=== PATIENT | female | born 1940 | race African-American/Black ===

== ENCOUNTER 2017-01-25 15:36 | Inpatient (IN) ==
[2017-01-25] MEDS ORDERED: ACETAMINOPHEN 325 MG TABLET PO PRN (16:44)
[2017-01-25] MEDS ORDERED: MAGNESIUM HYDROXIDE SUSP 30 ML UDCUP PO PRN (16:44)
[2017-01-25] MEDS ORDERED: chlorproMAZINE 25 MG TABLET PO PRN (16:44)
[2017-01-25] MEDS ORDERED: diphenhydrAMINE CAP 25 MG CAPSULE PO PRN (16:44)
[2017-01-25] MEDS ORDERED: guaiFENesin 200 MG/10 ML UDCUP PO PRN (16:44)
[2017-01-25] MEDS ORDERED: TEMAZEPAM 7.5 MG CAPSULE PO PRN (16:44)
[2017-01-25] MEDS ORDERED: BENZTROPINE 2 MG/2 ML AMP IV PRN (16:44)
[2017-01-25] MEDS ORDERED: MYLANTA/LIDO VISC 2:1 300 ML BOTTLE SWISH/SPIT PRN (16:44)
[2017-01-25] MEDS ORDERED: ALPRAZolam 0.25 MG TABLET PO PRN (16:44)
[2017-01-25] MEDS ORDERED: LOPERAMIDE 2 MG CAPSULE PO PRN ×2 (16:44)
[2017-01-25] MEDS ORDERED: ONDANSETRON 4 MG/2 ML VIAL IV PRN (16:44)
[2017-01-25] MEDS ORDERED: PROMETHAZINE INJ 25 MG in SODIUM CHLORIDE 0.9% 50 ML IV PRN (16:44)
[2017-01-25] MEDS ORDERED: ALUMINUM/MAGNES/SIMETH MAX STR 30 ML UDCUP PO PRN (16:44)
[2017-01-25] MEDS ORDERED: LACTULOSE 20 GM/30 ML UDCUP PO PRN (16:44)
[2017-01-25] MEDS ORDERED: traMADol 50 MG TABLET PO PRN (16:44)
[2017-01-25] MEDS ORDERED: chlorproMAZINE INJ 50 MG in SODIUM CHLORIDE 0.9% 100 ML IV PRN (16:44)
[2017-01-25] MEDS ORDERED: chlorproMAZINE INJ 25 MG in SODIUM CHLORIDE 0.9% 100 ML IV PRN (16:44)
[2017-01-25] MEDS ORDERED: MYLANTA/LIDO VISC 2:1 300 ML BOTTLE SWISH/SWAL PRN (16:44)
[2017-01-25] MEDS: STERILE WATER SUBCUT SCH (17:16)
[2017-01-25] MEDS: AZACITIDINE SUBCUT SCH (17:16)
[2017-01-25] MEDS: POTASSIUM CHLORIDE RIDER 10 MEQ in PREMIX 1 EACH IV SCH ×3 (18:43→22:57)
[2017-01-25] MEDS: SODIUM CHLORIDE 0.45% 1,000 ML IV SCH (18:43)
[2017-01-25] MEDS ORDERED: TUBERCULIN SKIN TEST 0.1 ML SYRINGE INTRADERM ONE (18:49)
[2017-01-25] MEDS ORDERED: PROCHLORPERAZINE 10 MG TABLET PO PRN (19:22)
[2017-01-25] MEDS ORDERED: ONDANSETRON 4 MG TABLET PO PRN (19:23)
[2017-01-25] MEDS: GABAPENTIN 300 MG CAPSULE PO SCH (21:41)
[2017-01-26] MEDS: POTASSIUM CHLORIDE RIDER 10 MEQ in PREMIX 1 EACH IV SCH ×7 (00:46→20:55)
[2017-01-26 05:29] LABS: Basophils # 0.1 10*3/uL (0.0-0.2); Basophils % 0.1 % (0.0-0.8); Hematocrit 25.9 VOL% (35.7-47.0); Hemoglobin 8.5 GM/DL (12.0-16.0); Immature Granulocytes % 9.7 %; Immature Granulocytes Absolute 5.19 #; Lymphocytes # 2.1 10*3/uL (1.4-4.0); Lymphocytes % 3.8 % (21.3-54.2); Mean Corpuscular HGB Conc 32.8 GM/DL (32-36); Mean Corpuscular Hemoglobin 29 PG (27-34); Mean Corpuscular Volume 88.7 FL (87-102); Monocytes # 32.7 10*3/uL (0.11-0.8); Monocytes % 60.9 % (1.7-12.7); Neutrophils # 13.6 10*3/uL (1.4-7.4); Neutrophils % 25.5 % (38.7-73.9); Red Blood Count 2.92 MC/CUMM (3.8-5.5); Red Cell Distribution Width 21.6 % (9.3-17.3)
[2017-01-26 05:33] LABS: Platelet Count 143 T/CUMM (130-400); White Blood Count 53.6 T/CUMM (4-12)
[2017-01-26 05:51] LABS: Band Neutrophils 3 % (0-10); Burr Cells Slight; Elliptocytes Few; Hypochromasia 1+; Lymphocytes 12 % (20-55); Platelet Estimate Normal; Segmented Neutrophils 26 % (50-85); Total Cells Counted 100
[2017-01-26 05:52] LABS: Microcytosis 1+
[2017-01-26 08:12] LABS: Calcium 6.6 MG/DL (8.5-10.1); Osmolality,Calculated 279.5 MOS/KG (273-304); Potassium 3.2 MMOL/L (3.5-5.1)
[2017-01-26] MEDS ORDERED: MAGNESIUM SULF RIDER 4 GM in PREMIX 1 EACH IV ONE (08:42)
--- NOTE | 2017-01-26 08:45 | Oncology History&Physical ---
Assessment and Plan (1) CMML (chronic myelomonocytic leukemia) Status: Acute Assessment and plan: Continue to follow CBC daily. Very close to transfusion. Supplementing magnesium and potassium intravenously today. Continuing with cycle 3 day 2 of days. Consult for physical therapy with consideration of swing bed placement. Acute renal failure continuing hydration Current Visit: Yes History of Present Illness Chief complaint: Weakness History of present illness: Ms. Davila is a 77 year old female With multiple myeloma and chronic myelomonocytic leukemia. The patient was seen yesterday a.m. in the ER status post fall. She had an unremarkable CT of the head and CT of the cervical spine. Her labs were notable for hypokalemia and acute renal failure. She was evaluated later that day in my office and after further discussion she was admitted to the hospital. She appears nontoxic this morning and feels much better after some basic IV fluids. Her creatinine has improved slightly from 2.2-1.9 with positive urine output. The patient was due for chemotherapy with 5 days ago which was initiated late yesterday afternoon. We have treated her M spike previously with Velcade and steroids with an excellent response. We were expecting home delivery of Revlimid for her myeloma later this week Home Medications Medication Instructions Recorded Confirmed Type amLODIPine [Norvasc] 5 mg PO DAILY 10/13/16 01/25/17 History Ondansetron HCl 8 mg PO Q6H PRN 11/24/16 01/25/17 History Prochlorperazine Tab [Compazine 10 mg PO Q6HR PRN 11/24/16 01/25/17 History Tab] traMADol TAB [Ultram] 50 mg PO BID PRN 11/24/16 01/25/17 History Omeprazole [Omeprazole] 20 mg PO DAILY 11/25/16 01/25/17 History Gabapentin Cap/Tab [Neurontin 300 mg PO TID 01/25/17 01/25/17 History Cap/Tab] Allergies Allergy/AdvReac Type Severity Reaction Status Date / Time No Known Allergies Allergy Verified 01/25/17 11:00 Medical,Surgical,& Family Hx - Medical History Cardio: History of: Hypertension (MEDICATION) Neurology: History of: Migraine No history of: Seizures HEENT: History of: Eye Problem (GLASSES) Genitourinary: History of: Kidney Stones, Recurring Urinary Tract Infections Gastrointestinal: History of: GERD Musculoskeletal: History of: Back/Neck Problems Hematology: History of: Anemia (cml), Blood Transfusion Reaction (2016) - Surgical History Cardiac Surgeries: Patient Denies: Cardiac Catheterization Thoracic Surgeries: Surgical HX of;: Lithotripsy (2016) HEENT Surgeries: Comment Only: Eye Surgery (CATARACT SUGERY TO LEFT EYE 9 YEARS AGO) Abdominal Surgeries: Surgical HX of: Cholecystectomy (7 YEARS AGO), Colonoscopy (2016), EGD (2016) - Family History Family History: Reports;: Family Cancer (SISTERS AND BROTHER) Denies;: Family Diabetes, Family Heart Disease, Family Hematology, Family Hypertension, Family Psychiatric Problems, Family Stroke - Social History Smoking Status: Never smoker Frequency of Alcohol Use: None Type of Drug Use: None - Constitutional Constitutional: Present: fatigue, malaise, weakness, weight loss. Absent: fever (s) - EENT Eye: Absent: blurry vision Ears: Absent: decreased hearing Nose, mouth and throat: Absent: dysphagia, epistaxis - Cardiovascular Cardiovascular ROS IM: Absent: chest pain - Respiratory Respiratory: Absent: cough - Gastrointestinal Gastrointestinal: Absent: abdominal pain, cramping - Neurological Neurological ROS: Absent: focal weakness, memory loss - Hematologic/Lymphatic Hematologic/Lymphatic: Absent: lymphadenopathy Exam - Constitutional Vitals: Period Temp Pulse Resp BP Sys/Rice Pulse Ox Last 24 Hr 97.8 F-98.2 F 88-98 16-20 89-126/55-75 94-99 General appearance: no acute distress, under weight - Head Head Exam: Present: normal inspection, normocephalic, atraumatic - Eye Eye Exam: Present: EOMI. Absent: conjunctival injection, periorbital swelling, scleral icterus - ENT ENT exam: Present: normal external ear exam - Neck Neck exam: Present: normal inspection. Absent: lymphadenopathy, tenderness, thyromegaly - Respiratory Respiratory exam: Present: CTAB. Absent: accessory muscle use, chest wall tenderness, wheezes - Cardiovascular Cardiovascular exam: Present: RRR - GI/Abdominal GI/Abdominal exam: Absent: ascites, distended, guarding - Extremities Exam Extremities exam: Present: normal capillary refill - Neurological Exam Neurological exam: Present: alert, oriented X3 Results - Labs CBC & BMP: 01/26/17 04:11 01/26/17 04:11
[2017-01-26] MEDS ORDERED: amLODIPine 5 MG TABLET PO SCH (09:00)
[2017-01-26] MEDS: PANTOPRAZOLE 20 MG TABLET PO SCH (09:23)
[2017-01-26] MEDS: GABAPENTIN 300 MG CAPSULE PO SCH ×3 (09:23→20:54)
[2017-01-26] MEDS ORDERED: AZACITIDINE IV SCH (09:49)
[2017-01-26] MEDS ORDERED: STERILE WATER IV SCH (09:49)
[2017-01-26 11:37] LABS: Apearance,Urine Slightly Hazy (Clear); Bacteria,Urine Occasional /HPF (Few); Bilirubin,Urine Negative (Negative); Blood, Urine Small mg/dL (Negative); Glucose,Urine (UA) Negative (Negative); Hyaline Casts,Urine 1 /LPF (0-3); Ketones,Urine Negative (Negative); Mucus,Urine Occasional /LPF (Occasional); Nitrite,Urine Negative (Negative); Protein,Urine Negative; RBC,Urine 3 /HPF (0-4); Squamous Epithelial Cell,Urine Occasional /HPF (0-10); Urine Color Yellow (Yellow); Urine Specific Gravity 1.006 (1.001-1.035); Urine Urobilinogen < 2.0 EU/DL (0.2-1.0); WBC,Urine 10 /HPF (0-6)
[2017-01-26] MEDS: SODIUM CHLORIDE 0.9% IV SCH (15:26)
[2017-01-26] MEDS: AZACITIDINE IV SCH (15:26)
[2017-01-26] MEDS: STERILE WATER SUBCUT SCH (15:35)
[2017-01-26] MEDS: AZACITIDINE SUBCUT SCH (15:35)
[2017-01-26] MEDS: SODIUM CHLORIDE 0.45% 1,000 ML IV SCH (20:56)
[2017-01-27 05:31] LABS: Basophils % 0.1 % (0.0-0.8); Eosinophils % 0.1 % (0.00-10.9); Hematocrit 26.1 VOL% (35.7-47.0); Hemoglobin 8.6 GM/DL (12.0-16.0); Immature Granulocytes % 6.3 %; Lymphocytes # 2.5 10*3/uL (1.4-4.0); Mean Corpuscular Hemoglobin 30 PG (27-34); Mean Corpuscular Volume 89.7 FL (87-102); Monocytes # 28.5 10*3/uL (0.11-0.8); Monocytes % 68.6 % (1.7-12.7); Neutrophils # 7.9 10*3/uL (1.4-7.4); Neutrophils % 18.9 % (38.7-73.9); Platelet Count 159 T/CUMM (130-400); Red Blood Count 2.91 MC/CUMM (3.8-5.5); Red Cell Distribution Width 21.3 % (9.3-17.3)
[2017-01-27 05:34] LABS: White Blood Count 41.6 T/CUMM (4-12)
[2017-01-27 05:52] LABS: Band Neutrophils 1 % (0-10); Lymphocytes 17 % (20-55); Segmented Neutrophils 29 % (50-85); Total Cells Counted 100
[2017-01-27 05:54] LABS: Acanthocytes Few; Hypochromasia 1+
[2017-01-27 05:55] LABS: Microcytosis 1+; Platelet Estimate Adequate; Schistocytes Slight
[2017-01-27 06:23] LABS: Calcium 6.2 MG/DL (8.5-10.1); Osmolality,Calculated 272.1 MOS/KG (273-304); Potassium 3.4 MMOL/L (3.5-5.1)
[2017-01-27] MEDS: PANTOPRAZOLE 20 MG TABLET PO SCH (08:53)
[2017-01-27] MEDS: GABAPENTIN 300 MG CAPSULE PO SCH ×3 (08:53→20:37)
--- NOTE | 2017-01-27 08:53 | Oncology Progress Note ---
Assessment and Plan (1) CMML (chronic myelomonocytic leukemia) Status: Acute Assessment and plan: Continue to follow CBC daily. Very close to transfusion. Supplementing magnesium and potassium intravenously today. Continuing with cycle 3 day 2 of days. Consult for physical therapy with consideration of swing bed placement. Acute renal failure continuing hydration Current Visit: Yes Oncology Subjective PN Interval history: Patient remained stable overnight. She does have some hypotension and we are continuing IV fluids. Amlodipine will be discontinued. I think most of the blood pressure is simply related to decrease body mass. Creatinine is improving. Her white blood count is down and we will continue with day 3 cycle 3 by Nasir. We are working on swing bed acceptance. Physical therapy will see her while hospitalized. Her abdomen is soft and nontender and she appears in no acute distress Exam - Constitutional Vitals: Period Temp Pulse Resp BP Sys/Rice Pulse Ox Last 24 Hr 97.6 F-99.4 F 84-95 16-20 87-110/52-65 89-98 Results - Labs CBC & BMP: 01/27/17 05:16 01/27/17 05:16
[2017-01-27] MEDS: POTASSIUM CHLORIDE RIDER 10 MEQ in PREMIX 1 EACH IV SCH ×5 (10:30→18:00)
[2017-01-27] MEDS: POTASSIUM CHLORIDE 8 MEQ CAPSULE PO SCH (10:30)
[2017-01-27] MEDS: SODIUM CHLORIDE 0.9% IV SCH (14:46)
[2017-01-27] MEDS: AZACITIDINE IV SCH (14:46)
[2017-01-27] MEDS: SODIUM CHLORIDE 0.45% 1,000 ML IV SCH (14:51)
[2017-01-27] MEDS ORDERED: LEVOFLOXACIN INJ 500 MG in PREMIX 1 EACH IV SCH (20:30)
[2017-01-28] MEDS: SODIUM CHLORIDE 0.45% 1,000 ML IV SCH (00:30)
[2017-01-28 05:44] LABS: Hematocrit 25.4 VOL% (35.7-47.0); Hemoglobin 8.4 GM/DL (12.0-16.0); Immature Granulocytes % 3.5 %; Immature Granulocytes Absolute 1.54 #; Lymphocytes # 3.3 10*3/uL (1.4-4.0); Lymphocytes % 7.5 % (21.3-54.2); Mean Corpuscular HGB Conc 33.1 GM/DL (32-36); Mean Corpuscular Hemoglobin 30 PG (27-34); Mean Corpuscular Volume 89.1 FL (87-102); Monocytes # 32.3 10*3/uL (0.11-0.8); Monocytes % 72.7 % (1.7-12.7); Neutrophils # 7.2 10*3/uL (1.4-7.4); Neutrophils % 16.3 % (38.7-73.9); Red Blood Count 2.85 MC/CUMM (3.8-5.5); Red Cell Distribution Width 21.4 % (9.3-17.3)
[2017-01-28 05:52] LABS: Platelet Count 109 T/CUMM (130-400); White Blood Count 44.4 T/CUMM (4-12)
[2017-01-28 06:16] LABS: Calcium 6.5 MG/DL (8.5-10.1); Osmolality,Calculated 268.2 MOS/KG (273-304); Potassium 4.3 MMOL/L (3.5-5.1)
[2017-01-28 06:18] LABS: Burr Cells Slight; Elliptocytes Few; Hypochromasia 1+; Lymphocytes 6 % (20-55); Platelet Estimate Decreased; Segmented Neutrophils 31 % (50-85); Total Cells Counted 100
[2017-01-28 06:19] LABS: Microcytosis 1+
--- NOTE | 2017-01-28 08:58 | Oncology Progress Note ---
Assessment and Plan (1) CMML (chronic myelomonocytic leukemia) Status: Acute Assessment and plan: Continue to follow CBC daily. Very close to transfusion. Supplementing magnesium and potassium intravenously today. Continuing with cycle 3 day 2 of days. Consult for physical therapy with consideration of swing bed placement. Acute renal failure continuing hydration Current Visit: Yes Oncology Subjective PN Interval history: jocelyne vee unavail febrile overnight but in no distress wbc stable elevation to complete chemo tomorrow awaiting final sens of urine cx she is anemic which is contributing to her fatigue planning swing bed in the am Exam - Constitutional Vitals: Period Temp Pulse Resp BP Sys/Rice Pulse Ox Last 24 Hr 98.2 F-101.3 F 90-102 18-20 81-104/46-64 94-95 Results - Labs CBC & BMP: 01/28/17 05:29 01/28/17 05:29
[2017-01-28] MEDS: GABAPENTIN 300 MG CAPSULE PO SCH ×3 (09:14→20:42)
[2017-01-28] MEDS: POTASSIUM CHLORIDE 8 MEQ CAPSULE PO SCH (09:14)
[2017-01-28] MEDS: PANTOPRAZOLE 20 MG TABLET PO SCH (09:14)
--- NOTE | 2017-01-28 09:26 | XRay Report ---
Referring Physician: Joe Plata Exam: XR chest 1V portable Date: January 28, 2017 at 8:52 AM Reason: Fever Comparison: Left rib x-rays with chest view December 06, 2016 Findings: The cardiac silhouette is normal in size. There are mild bibasilar opacities. This likely represents atelectasis, but there could be superimposed pneumonia. No pneumothorax is identified, but there is likely minimal right pleural fluid. No acute osseous process is seen. Impression: Mild bibasilar opacities are present. This likely represents atelectasis, but there could be superimposed pneumonia, especially at the right lung base. There is also minimal right pleural fluid. PROCEDURE INTERPRETED AT [facility] DEPARTMENT OF RADIOLOGY Final Report Signed by: Dr. Hector Morrison
[2017-01-28] MEDS ORDERED: MAGNESIUM SULF RIDER 4 GM in PREMIX 1 EACH IV ONE (10:00)
[2017-01-28 11:41] LABS: Apearance,Urine CLEAR (Clear); Bilirubin,Urine Negative (Negative); Blood, Urine Small mg/dL (Negative); Glucose,Urine (UA) Negative (Negative); Ketones,Urine Negative (Negative); Nitrite,Urine Negative (Negative); Protein,Urine Negative; RBC,Urine 1 /HPF (0-4); Squamous Epithelial Cell,Urine Occasional /HPF (0-10); Urine Color Straw (Yellow); Urine Specific Gravity 1.004 (1.001-1.035); Urine Urobilinogen < 2.0 EU/DL (0.2-1.0); WBC,Urine 2 /HPF (0-6)
[2017-01-28] MEDS: AZACITIDINE IV SCH (14:14)
[2017-01-28] MEDS: SODIUM CHLORIDE 0.9% IV SCH (14:14)
[2017-01-28] MEDS ORDERED: LEVOFLOXACIN INJ 250 MG in PREMIX 1 EACH IV SCH (20:00)
[2017-01-29 07:44] VITALS: BP 91/52
[2017-01-29] MEDS: POTASSIUM CHLORIDE 8 MEQ CAPSULE PO SCH (08:14)
[2017-01-29] MEDS: PANTOPRAZOLE 20 MG TABLET PO SCH (08:14)
[2017-01-29] MEDS: GABAPENTIN 300 MG CAPSULE PO SCH (08:14)
[2017-01-29] MEDS: SODIUM CHLORIDE 0.45% 1,000 ML IV SCH (09:21)
[2017-01-29] MEDS: SODIUM CHLORIDE 0.9% IV SCH (09:25)
[2017-01-29] MEDS: AZACITIDINE IV SCH (09:25)
--- NOTE | 2017-01-29 12:13 | Discharge Summary ---
Hospital Course - Hospital Course Hospital Course: Patient with both multiple myeloma and chronic myelomonocytic leukemia. She was admitted with acute renal failure hypotension and failure to thrive. During this admission we have discontinued her amlodipine and provided her with IV fluids. Her creatinine did improve. We have repleted her electrolytes. We did administer by Nasir cycle 3 days 1 through 5. She also has evidence of an E. coli urinary tract infection with oral antibiotics prescribed at discharge. She will transfer to swing bed today for continued rehabilitation with weekly labs ordered and 3 week office visit to be arranged Diagnosis - Discharge Diagnosis (1) CMML (chronic myelomonocytic leukemia) Status: Acute Specialty Discharge - Follow Up or Referrals Follow up with: Joe Plata MD [Primary Care Provider] - 02/22/17 11:00 am Discharge Plan - Discharge Medications No Action traMADol TAB [Ultram] 50 mg PO BID PRN PRN Reason: Pain Ondansetron HCl 8 mg PO Q6H PRN PRN Reason: Nausea Gabapentin Cap/Tab [Neurontin Cap/Tab] 300 mg PO TID Prochlorperazine Tab [Compazine Tab] 10 mg PO Q6HR PRN PRN Reason: Nausea Omeprazole [Omeprazole] 20 mg PO DAILY Levofloxacin Tab [Levaquin Tab] 250 mg PO DAILY Potassium Chloride Cap/Tab [Micro K] 16 meq PO DAILY - Follow Up or Referral Follow Up: Joe Plata MD [Primary Care Provider] - 02/22/17 11:00 am - Forms/Instructions Instructions: Luc Antibiotic Awarness, Urinary Tract Infection in Women ( [place]) Exam - Constitutional Vitals: Period Temp Pulse Resp BP Sys/Rice Pulse Ox Last 24 Hr 98.2 F-99.6 F 92-110 16-20 85-107/52-59 94-98 Discharge Results Procedures and tests throughout hospitalization: Pending Orders 01/27/17 20:27 Blood Culture Stat Labs on day of discharge: Preliminary micro results at discharge 01/27/17 20:27 Blood Culture - Preliminary Blood No growth at 1 day 01/27/17 20:38 Blood Culture - Preliminary Blood No growth at 1 day DS: Provider Date of admission: 01/25/17 16:44 Primary care physician: Joe Plata MD Attending physician on admission: Joe Plaat MD Consults: 01/25/17 16:49 Consult to Physical Therapy [CONS] Routine Reason for Physical Therapy: Weakness Evaluate and Treat 01/25/17 18:03 Consult to Dietitian [CONS] Routine Reason for Dietitian: Other Consult Comment: significant weight loss 01/25/17 18:49 Consult to Case Mgmt/Social Srvs [CONS] Routine Reason for Case Mgmt/Social Srvs: Discharge Planning Swingbed/SNF/[facility] Discharging clinician: Joe Plata MD
== END 2017-01-29 11:15 | disposition swing bed (61) | DRG 683 ==
LOC: EDBD → N.4E 16:26
PROVIDERS: ADMIT Specialist; ATTEND Specialist

== ENCOUNTER 2017-06-10 18:39 | Inpatient (IN) ==
[2017-06-10] MEDS ORDERED: SODIUM CHLORIDE 0.9% 1,000 ML IV STA (19:42)
[2017-06-10 20:15] LABS: Basophils # 0.1 10*3/uL (0.0-0.2); Basophils % 0.5 % (0.0-0.8); Hematocrit 33.6 VOL% (35.7-47.0); Hemoglobin 11.2 GM/DL (12.0-16.0); Immature Granulocytes % 7.9 %; Lymphocytes # 2.2 10*3/uL (1.4-4.0); Lymphocytes % 17.1 % (21.3-54.2); Mean Corpuscular HGB Conc 33.3 GM/DL (32-36); Mean Corpuscular Hemoglobin 32 PG (27-34); Mean Corpuscular Volume 96.8 FL (87-102); Mean Platelet Volume 11.8 FL (9.6-12.0); Monocytes # 4.1 10*3/uL (0.11-0.8); Monocytes % 32.7 % (1.7-12.7); Neutrophils # 5.3 10*3/uL (1.4-7.4); Neutrophils % 41.8 % (38.7-73.9); Platelet Count 168 T/CUMM (130-400); Red Blood Count 3.47 MC/CUMM (3.8-5.5); Red Cell Distribution Width 16.6 % (9.3-17.3); White Blood Count 12.6 T/CUMM (4-12)
[2017-06-10 20:41] LABS: Albumin 4.1 G/DL (3.4-5.0); Bilirubin,Total 0.6 MG/DL (0.2-1.0); Calcium 9.1 MG/DL (8.5-10.1); Magnesium 1.9 MG/DL (1.8-2.4); Osmolality,Calculated 282.5 MOS/KG (273-304); Potassium 3.7 MMOL/L (3.5-5.1); Total Protein 8.7 G/DL (6.4-8.3)
[2017-06-10 20:45] LABS: Apearance,Urine Slightly Hazy (Clear); Bacteria,Urine Few /HPF (Few); Bilirubin,Urine Negative (Negative); Blood, Urine Moderate mg/dL (Negative); Glucose,Urine (UA) Negative (Negative); Hyaline Casts,Urine 1 /LPF (0-3); Ketones,Urine Negative (Negative); Nitrite,Urine Negative (Negative); Protein,Urine 30 MG/DL; RBC,Urine 4 /HPF (0-4); Squamous Epithelial Cell,Urine Occasional /HPF (0-10); Transitional Epi Cells,Urine Occasional /HPF (<1); Urine Color Yellow (Yellow); Urine Specific Gravity 1.011 (1.001-1.035); Urine Urobilinogen < 2.0 EU/DL (0.2-1.0); WBC,Urine 21 /HPF (0-6)
[2017-06-10 21:45] LABS: Band Neutrophils 1 % (0-10); Lymphocytes 23 % (20-55); Platelet Estimate Normal; Poikilocytosis Slight; Segmented Neutrophils 41 % (50-85); Tear Drop Cells Few; Total Cells Counted 100
[2017-06-10 21:46] LABS: Burr Cells Few
[2017-06-10] MEDS ORDERED: PROMETHAZINE INJ 25 MG in SODIUM CHLORIDE 0.9% 50 ML IV PRN (22:59)
[2017-06-10] MEDS ORDERED: ALUMINUM/MAGNES/SIMETH MAX STR 30 ML UDCUP PO PRN (22:59)
[2017-06-10] MEDS ORDERED: MYLANTA/LIDO VISC 2:1 300 ML BOTTLE SWISH/SPIT PRN (22:59)
[2017-06-10] MEDS ORDERED: ACETAMINOPHEN 325 MG TABLET PO PRN (22:59)
[2017-06-10] MEDS ORDERED: MYLANTA/LIDO VISC 2:1 300 ML BOTTLE SWISH/SWAL PRN (22:59)
[2017-06-10] MEDS ORDERED: BENZTROPINE 2 MG/2 ML AMP IV PRN (22:59)
[2017-06-10] MEDS ORDERED: diphenhydrAMINE CAP 25 MG CAPSULE PO PRN (22:59)
[2017-06-10] MEDS ORDERED: guaiFENesin 200 MG/10 ML UDCUP PO PRN (22:59)
[2017-06-10] MEDS ORDERED: ALPRAZolam 0.25 MG TABLET PO PRN (22:59)
[2017-06-10] MEDS ORDERED: LOPERAMIDE 2 MG CAPSULE PO PRN ×2 (22:59)
[2017-06-10] MEDS ORDERED: chlorproMAZINE 25 MG TABLET PO PRN (22:59)
[2017-06-10] MEDS ORDERED: LACTULOSE 20 GM/30 ML UDCUP PO PRN (22:59)
[2017-06-10] MEDS ORDERED: MAGNESIUM HYDROXIDE SUSP 30 ML UDCUP PO PRN (22:59)
[2017-06-10] MEDS ORDERED: traMADol 50 MG TABLET PO PRN (22:59)
[2017-06-10] MEDS ORDERED: chlorproMAZINE INJ 25 MG in SODIUM CHLORIDE 0.9% 100 ML IV PRN (22:59)
[2017-06-10] MEDS ORDERED: chlorproMAZINE INJ 50 MG in SODIUM CHLORIDE 0.9% 100 ML IV PRN (22:59)
[2017-06-10] MEDS: SODIUM CHLORIDE 0.9% 1,000 ML IV SCH (23:41)
[2017-06-11] MEDS: ONDANSETRON 4 MG/2 ML VIAL IV PRN (07:29)
[2017-06-11] MEDS: SODIUM CHLORIDE 0.9% 1,000 ML IV SCH (09:23)
[2017-06-11 09:25] LABS: Basophils % 0.3 % (0.0-0.8); Eosinophils % 0.1 % (0.00-10.9); Hemoglobin 9.5 GM/DL (12.0-16.0); Immature Granulocytes % 7.7 %; Immature Granulocytes Absolute 0.87 #; Lymphocytes # 1.8 10*3/uL (1.4-4.0); Lymphocytes % 15.7 % (21.3-54.2); Mean Corpuscular HGB Conc 32.8 GM/DL (32-36); Mean Corpuscular Hemoglobin 32 PG (27-34); Mean Corpuscular Volume 98.6 FL (87-102); Mean Platelet Volume 12.7 FL (9.6-12.0); Monocytes # 3.7 10*3/uL (0.11-0.8); Monocytes % 32.4 % (1.7-12.7); Neutrophils % 43.8 % (38.7-73.9); Platelet Count 146 T/CUMM (130-400); Red Blood Count 2.94 MC/CUMM (3.8-5.5); Red Cell Distribution Width 16.6 % (9.3-17.3); White Blood Count 11.3 T/CUMM (4-12)
[2017-06-11 10:03] LABS: Albumin 3.4 G/DL (3.4-5.0); Bilirubin,Total 0.5 MG/DL (0.2-1.0); Calcium 8.1 MG/DL (8.5-10.1); Magnesium 1.6 MG/DL (1.8-2.4); Osmolality,Calculated 282.1 MOS/KG (273-304); Potassium 3.3 MMOL/L (3.5-5.1); Total Protein 7.3 G/DL (6.4-8.3)
[2017-06-11 10:51] LABS: Hypochromasia 1+; Lymphocytes 22 % (20-55); Myelocytes 1 %; Platelet Estimate Adequate; Segmented Neutrophils 47 % (50-85); Total Cells Counted 100
[2017-06-11] MEDS ORDERED: ONDANSETRON 4 MG TABLET PO PRN (10:58)
[2017-06-11] MEDS ORDERED: PANTOPRAZOLE 40 MG TABLET PO PRN (10:58)
[2017-06-11] MEDS ORDERED: traMADol 50 MG TABLET PO PRN (10:58)
[2017-06-11] MEDS ORDERED: DEXAMETHASONE 10 MG/1 ML VIAL IV ONE (11:01)
[2017-06-11] MEDS: POTASSIUM CHLORIDE 8 MEQ CAPSULE PO SCH (11:13)
[2017-06-11] MEDS: MAGNESIUM CHLORIDE 64 MG TABLET PO SCH ×2 (11:13→20:28)
[2017-06-11] MEDS: LIDOCAINE 5% PATCH TRANSDERM SCH (11:21)
[2017-06-11] MEDS: GABAPENTIN 400 MG CAPSULE PO SCH ×3 (11:21→20:28)
[2017-06-11] MEDS: POTASSIUM CHLORIDE RIDER 10 MEQ in PREMIX 1 EACH IV SCH ×4 (11:44→15:49)
[2017-06-11] MEDS ORDERED: MAGNESIUM SULF RIDER 4 GM in PREMIX 1 EACH IV ONE (12:00)
[2017-06-11] MEDS: TEMAZEPAM 7.5 MG CAPSULE PO PRN (22:41)
[2017-06-12] MEDS: SODIUM CHLORIDE 0.9% 1,000 ML IV SCH ×4 (02:02→22:51)
[2017-06-12 06:41] LABS: Basophils % 0.2 % (0.0-0.8); Hematocrit 27.3 VOL% (35.7-47.0); Hemoglobin 9.2 GM/DL (12.0-16.0); Immature Granulocytes % 8.1 %; Immature Granulocytes Absolute 0.98 #; Lymphocytes % 7.8 % (21.3-54.2); Mean Corpuscular HGB Conc 33.7 GM/DL (32-36); Mean Corpuscular Hemoglobin 33 PG (27-34); Mean Corpuscular Volume 98.2 FL (87-102); Mean Platelet Volume 12.2 FL (9.6-12.0); Monocytes # 3.4 10*3/uL (0.11-0.8); Monocytes % 27.9 % (1.7-12.7); Neutrophils # 6.8 10*3/uL (1.4-7.4); Platelet Count 136 T/CUMM (130-400); Red Blood Count 2.78 MC/CUMM (3.8-5.5); Red Cell Distribution Width 16.4 % (9.3-17.3); White Blood Count 12.1 T/CUMM (4-12)
[2017-06-12 07:13] LABS: Calcium 7.9 MG/DL (8.5-10.1); Magnesium 2.6 MG/DL (1.8-2.4); Potassium 4.4 MMOL/L (3.5-5.1)
[2017-06-12 07:41] LABS: Hypochromasia 1+; Lymphocytes 3 % (20-55); Macrocytosis 1+; Myelocytes 2 %; Platelet Estimate Decreased; Polychromasia Slight; Segmented Neutrophils 69 % (50-85); Total Cells Counted 100
[2017-06-12] MEDS: ONDANSETRON 4 MG/2 ML VIAL IV PRN (08:24)
[2017-06-12] MEDS: MAGNESIUM CHLORIDE 64 MG TABLET PO SCH ×2 (08:27→20:25)
[2017-06-12] MEDS: POTASSIUM CHLORIDE 8 MEQ CAPSULE PO SCH (08:27)
[2017-06-12] MEDS: GABAPENTIN 400 MG CAPSULE PO SCH ×3 (08:27→20:25)
[2017-06-12] MEDS: LIDOCAINE 5% PATCH TRANSDERM SCH (08:27)
[2017-06-13 06:24] LABS: Basophils % 0.3 % (0.0-0.8); Immature Granulocytes % 6.9 %; Immature Granulocytes Absolute 0.83 #; Lymphocytes # 2.8 10*3/uL (1.4-4.0); Lymphocytes % 23.1 % (21.3-54.2); Mean Corpuscular Hemoglobin 33 PG (27-34); Mean Corpuscular Volume 101.6 FL (87-102); Mean Platelet Volume 12.5 FL (9.6-12.0); Monocytes % 33.4 % (1.7-12.7); Neutrophils # 4.4 10*3/uL (1.4-7.4); Neutrophils % 36.3 % (38.7-73.9); Platelet Count 127 T/CUMM (130-400); Red Blood Count 2.46 MC/CUMM (3.8-5.5); Red Cell Distribution Width 17.1 % (9.3-17.3)
[2017-06-13 06:59] LABS: Alanine Aminotransferase < 6 U/L (13-56); Albumin 2.7 G/DL (3.4-5.0); Alkaline Phosphatase 50 U/L (45-117); Aspartate Amino Transferase 5 U/L (0-37); Blood Urea Nitrogen 34 MG/DL (7-18); Calcium 7.2 MG/DL (8.5-10.1); Glucose 88 MG/DL (74-106); Potassium 3.8 MMOL/L (3.5-5.1); Sodium 143 MMOL/L (136-145); Total Protein 6.1 G/DL (6.4-8.3)
[2017-06-13 07:24] LABS: Magnesium 1.4 MG/DL (1.8-2.4); Potassium 3.8 MMOL/L (3.5-5.1)
[2017-06-13 07:52] LABS: Lymphocytes 24 % (20-55); Segmented Neutrophils 40 % (50-85); Total Cells Counted 100
[2017-06-13 07:53] LABS: Burr Cells Slight; Macrocytosis 1+; Platelet Estimate Decreased; Target Cells Slight
[2017-06-13] MEDS: GABAPENTIN 400 MG CAPSULE PO SCH ×3 (08:30→20:12)
[2017-06-13] MEDS: POTASSIUM CHLORIDE 8 MEQ CAPSULE PO SCH (08:30)
[2017-06-13] MEDS: MAGNESIUM CHLORIDE 64 MG TABLET PO SCH ×2 (08:30→20:11)
[2017-06-13] MEDS: ONDANSETRON 4 MG/2 ML VIAL IV PRN (08:30)
[2017-06-13] MEDS: LIDOCAINE 5% PATCH TRANSDERM SCH (08:30)
[2017-06-13] MEDS: SODIUM CHLORIDE 0.9% 1,000 ML IV SCH ×2 (08:34→11:07)
[2017-06-13] MEDS ORDERED: SODIUM CHLORIDE 0.9% 250 ML IV PRN (09:51)
[2017-06-13] MEDS: TEMAZEPAM 7.5 MG CAPSULE PO PRN (20:12)
[2017-06-14] MEDS: SODIUM CHLORIDE 0.9% 1,000 ML IV SCH (01:19)
[2017-06-14 05:34] LABS: Basophils # 0.1 10*3/uL (0.0-0.2); Basophils % 0.4 % (0.0-0.8); Hematocrit 34.9 VOL% (35.7-47.0); Immature Granulocytes % 7.2 %; Immature Granulocytes Absolute 0.92 #; Lymphocytes # 2.7 10*3/uL (1.4-4.0); Lymphocytes % 21.4 % (21.3-54.2); Mean Corpuscular Hemoglobin 31 PG (27-34); Mean Corpuscular Volume 93.3 FL (87-102); Mean Platelet Volume 12.5 FL (9.6-12.0); Monocytes # 4.4 10*3/uL (0.11-0.8); Monocytes % 34.5 % (1.7-12.7); Neutrophils # 4.7 10*3/uL (1.4-7.4); Neutrophils % 36.5 % (38.7-73.9); Platelet Count 133 T/CUMM (130-400); White Blood Count 12.8 T/CUMM (4-12)
[2017-06-14 05:45] LABS: Hemoglobin 11.5 GM/DL (12.0-16.0); Red Blood Count 3.74 MC/CUMM (3.8-5.5)
[2017-06-14 06:03] LABS: Lymphocytes 25 % (20-55); Platelet Estimate Normal; Segmented Neutrophils 44 % (50-85); Total Cells Counted 100
[2017-06-14 06:04] LABS: Giant Platelets Few; Hypochromasia 1+; Macrocytosis Slight; Ovalocytes Slight
[2017-06-14 06:05] LABS: Calcium 7.1 MG/DL (8.5-10.1); Magnesium 1.1 MG/DL (1.8-2.4); Osmolality,Calculated 284.3 MOS/KG (273-304); Potassium 3.5 MMOL/L (3.5-5.1)
[2017-06-14 06:08] LABS: Albumin 2.5 G/DL (3.4-5.0); Bilirubin,Total 0.4 MG/DL (0.2-1.0); Osmolality,Calculated 285.1 MOS/KG (273-304); Potassium 3.4 MMOL/L (3.5-5.1); Total Protein 5.9 G/DL (6.4-8.3)
[2017-06-14 08:06] LABS: Albumin (SPE) 3.7 G/DL (3.2-5.3); Albumin (SPE) Rel % 52.1 %; Alpha 1 (SPE) 0.2 G/DL (0.1-0.4); Alpha 1 (SPE) Rel % 2.6 %; Alpha 2 (SPE) 0.7 G/DL (0.4-1.0); Alpha 2 (SPE) Rel % 9.1 %; Beta (SPE) 0.7 G/DL (0.5-1.1); Beta (SPE) Rel % 10.3 %; Gamma (SPE) 1.9 G/DL (0.7-1.7); Gamma (SPE) Rel % 25.9 %; Total Protein (Chem) 7.2 G/DL (6.4-8.3)
[2017-06-14] MEDS ORDERED: MAGNESIUM SULF RIDER 4 GM in PREMIX 1 EACH IV ONE (08:21)
[2017-06-14] MEDS: POTASSIUM CHLORIDE 8 MEQ CAPSULE PO SCH (08:52)
[2017-06-14] MEDS: MAGNESIUM CHLORIDE 64 MG TABLET PO SCH (08:52)
[2017-06-14] MEDS: LIDOCAINE 5% PATCH TRANSDERM SCH (08:53)
[2017-06-14] MEDS: GABAPENTIN 400 MG CAPSULE PO SCH (08:54)
[2017-06-14 11:58] VITALS: BP 118/67
== END 2017-06-14 14:28 | disposition home or self-care (01) | DRG 683 ==
LOC: N.ED 18:39 → N.EDINP 21:14 → N.TELEN 22:03 → N.4E 06-11 11:00
PROVIDERS: ADMIT Specialist; ATTEND Specialist

== ENCOUNTER 2017-12-24 15:32 | Inpatient (IN) ==
[2017-12-24] MEDS ORDERED: SODIUM CHLORIDE 0.9% 1,000 ML IV STA (16:28)
[2017-12-24] MEDS ORDERED: ACETAMINOPHEN 500 MG TABLET PO STA (16:28)
[2017-12-24 16:56] LABS: Basophils % 0.1 % (0.0-0.8); Hematocrit 35.7 VOL% (35.7-47.0); Hemoglobin 11.4 GM/DL (12.0-16.0); Immature Granulocytes % 2.5 %; Immature Granulocytes Absolute 0.41 #; Lymphocytes # 0.8 10*3/uL (1.4-4.0); Mean Corpuscular HGB Conc 31.9 GM/DL (32-36); Mean Corpuscular Hemoglobin 32 PG (27-34); Mean Corpuscular Volume 99.2 FL (87-102); Mean Platelet Volume 11.6 FL (9.6-12.0); Monocytes # 3.5 10*3/uL (0.11-0.8); Monocytes % 20.7 % (1.7-12.7); Neutrophils % 71.7 % (38.7-73.9); White Blood Count 16.7 T/CUMM (4-12)
[2017-12-24 17:01] LABS: Platelet Count 38 T/CUMM (130-400)
[2017-12-24 17:10] LABS: INR 1.5; Partial Thromboplastin Time 35.5 SECS (0-40)
[2017-12-24 17:19] LABS: Albumin 2.4 G/DL (3.4-5.0); Bilirubin,Total 1.2 MG/DL (0.2-1.0); Calcium 8.6 MG/DL (8.5-10.1); Osmolality,Calculated 271.2 MOS/KG (273-304); Potassium 3.9 MMOL/L (3.5-5.1); Total Protein 8.9 G/DL (6.4-8.3)
[2017-12-24 17:43] LABS: Band Neutrophils 1 % (0-10); Lymphocytes 7 % (20-55); Segmented Neutrophils 83 % (50-85); Total Cells Counted 100
[2017-12-24 17:45] LABS: Anisocytosis 1+; Platelet Estimate Decreased
[2017-12-24 18:56] LABS: Apearance,Urine Slightly Hazy (Clear); Bacteria,Urine Occasional /HPF (Few); Bilirubin,Urine Negative (Negative); Blood, Urine Large mg/dL (Negative); Glucose,Urine (UA) Negative (Negative); Ketones,Urine Negative (Negative); Mucus,Urine Occasional /LPF (Occasional); Nitrite,Urine Negative (Negative); Protein,Urine 30 MG/DL; RBC,Urine 23 /HPF (0-4); Squamous Epithelial Cell,Urine Occasional /HPF (0-10); Urine Color Yellow (Yellow); Urine Specific Gravity 1.005 (1.001-1.035); Urine Urobilinogen < 2.0 EU/DL (0.2-1.0); WBC,Urine 115 /HPF (0-6)
[2017-12-24] MEDS ORDERED: chlorproMAZINE INJ 25 MG in SODIUM CHLORIDE 0.9% 100 ML IV PRN (21:50)
[2017-12-24] MEDS ORDERED: guaiFENesin 200 MG/10 ML UDCUP PO PRN (21:50)
[2017-12-24] MEDS ORDERED: LEVOFLOXACIN INJ 500 MG in PREMIX 1 EACH IV ONE (21:50)
[2017-12-24] MEDS ORDERED: SODIUM CHLORIDE 0.9% 1,000 ML IV PRN (21:50)
[2017-12-24] MEDS ORDERED: MYLANTA/LIDO VISC 2:1 300 ML BOTTLE SWISH/SWAL PRN (21:50)
[2017-12-24] MEDS ORDERED: traMADol 50 MG TABLET PO PRN (21:50)
[2017-12-24] MEDS ORDERED: MYLANTA/LIDO VISC 2:1 300 ML BOTTLE SWISH/SPIT PRN (21:50)
[2017-12-24] MEDS ORDERED: BENZTROPINE 2 MG/2 ML AMP IV PRN (21:50)
[2017-12-24] MEDS ORDERED: MAGNESIUM HYDROXIDE SUSP 30 ML UDCUP PO PRN (21:50)
[2017-12-24] MEDS ORDERED: LACTULOSE 20 GM/30 ML UDCUP PO PRN (21:50)
[2017-12-24] MEDS ORDERED: LOPERAMIDE 2 MG CAPSULE PO PRN ×2 (21:50)
[2017-12-24] MEDS ORDERED: ALPRAZolam 0.25 MG TABLET PO PRN (21:50)
[2017-12-24] MEDS ORDERED: PROMETHAZINE INJ 25 MG in SODIUM CHLORIDE 0.9% 50 ML IV PRN (21:50)
[2017-12-24] MEDS ORDERED: diphenhydrAMINE CAP 25 MG CAPSULE PO PRN (21:50)
[2017-12-24] MEDS ORDERED: ALUMINUM/MAGNES/SIMETH MAX STR 30 ML UDCUP PO PRN (21:50)
[2017-12-24] MEDS: SODIUM CHLORIDE 0.9% 1,000 ML IV SCH (22:38)
[2017-12-24 22:43] LABS: Uric Acid 5.1 MG/DL (2.6-6.0)
[2017-12-25] MEDS: ACETAMINOPHEN 325 MG TABLET PO PRN (04:25)
[2017-12-25] MEDS ORDERED: SODIUM CHLORIDE 0.9% 2,000 ML IV ONE (10:09)
[2017-12-25] MEDS ORDERED: MAGNESIUM SULF RIDER 4 GM in PREMIX 1 EACH IV ONE (10:24)
[2017-12-25 11:13] LABS: Basophils % 0.1 % (0.0-0.8); Hemoglobin 8.7 GM/DL (12.0-16.0); Immature Granulocytes % 2.7 %; Immature Granulocytes Absolute 0.73 #; Lymphocytes # 0.6 10*3/uL (1.4-4.0); Lymphocytes % 2.1 % (21.3-54.2); Mean Corpuscular HGB Conc 32.2 GM/DL (32-36); Mean Corpuscular Hemoglobin 32 PG (27-34); Mean Corpuscular Volume 99.3 FL (87-102); Mean Platelet Volume 12.8 FL (9.6-12.0); Monocytes # 3.4 10*3/uL (0.11-0.8); Monocytes % 12.4 % (1.7-12.7); Neutrophils # 22.7 10*3/uL (1.4-7.4); Neutrophils % 82.7 % (38.7-73.9); Platelet Count 69 T/CUMM (130-400); Red Blood Count 2.72 MC/CUMM (3.8-5.5); Red Cell Distribution Width 17.2 % (9.3-17.3); White Blood Count 27.5 T/CUMM (4-12)
[2017-12-25 11:38] LABS: Calcium 6.8 MG/DL (8.5-10.1); Osmolality,Calculated 275.8 MOS/KG (273-304); Potassium 3.4 MMOL/L (3.5-5.1)
[2017-12-25] MEDS: ONDANSETRON 4 MG/2 ML VIAL IV PRN ×2 (12:40→21:50)
[2017-12-25 12:43] LABS: Band Neutrophils 3 % (0-10); Hypersegmented Neutrophil 1+; Hypochromasia 1+; Lymphocytes 1 % (20-55); Platelet Estimate Decreased; Segmented Neutrophils 85 % (50-85); Total Cells Counted 100
[2017-12-25] MEDS ORDERED: FILGRASTIM-SNDZ 480 MCG/0.8 ML SYRINGE SUBCUT SCH (17:39)
[2017-12-25] MEDS: SODIUM CHLORIDE 0.9% 1,000 ML IV SCH (21:45)
[2017-12-25] MEDS ORDERED: LEVOFLOXACIN INJ 250 MG in PREMIX 1 EACH IV SCH (22:00)
[2017-12-26 06:57] LABS: Basophils % 0.1 % (0.0-0.8); Hematocrit 26.9 VOL% (35.7-47.0); Hemoglobin 9.1 GM/DL (12.0-16.0); Immature Granulocytes % 2.8 %; Immature Granulocytes Absolute 0.66 #; Lymphocytes # 0.6 10*3/uL (1.4-4.0); Lymphocytes % 2.4 % (21.3-54.2); Mean Corpuscular HGB Conc 33.8 GM/DL (32-36); Mean Corpuscular Hemoglobin 32 PG (27-34); Mean Corpuscular Volume 95.4 FL (87-102); Mean Platelet Volume 12.9 FL (9.6-12.0); Monocytes # 2.2 10*3/uL (0.11-0.8); Monocytes % 9.2 % (1.7-12.7); Neutrophils # 20.3 10*3/uL (1.4-7.4); Neutrophils % 85.5 % (38.7-73.9); Platelet Count 51 T/CUMM (130-400); Red Blood Count 2.82 MC/CUMM (3.8-5.5); Red Cell Distribution Width 17.3 % (9.3-17.3); White Blood Count 23.7 T/CUMM (4-12)
[2017-12-26 07:19] LABS: Hypochromasia Slight; Lymphocytes 3 % (20-55); Platelet Estimate Decreased; Segmented Neutrophils 89 % (50-85); Total Cells Counted 100
[2017-12-26 07:36] LABS: Albumin 1.8 G/DL (3.4-5.0); Bilirubin,Total 0.8 MG/DL (0.2-1.0); Calcium 6.7 MG/DL (8.5-10.1); Osmolality,Calculated 274.5 MOS/KG (273-304); Potassium 2.9 MMOL/L (3.5-5.1); Total Protein 6.3 G/DL (6.4-8.3)
[2017-12-26] MEDS ORDERED: FILGRASTIM-SNDZ 480 MCG/0.8 ML SYRINGE SUBCUT SCH (09:00)
[2017-12-26] MEDS: SODIUM CHLORIDE 0.9% 1,000 ML IV SCH (09:54)
[2017-12-26] MEDS: POTASSIUM CHLORIDE 20 MEQ TABLET PO SCH (12:19)
[2017-12-26] MEDS: POTASSIUM CHLORIDE RIDER 10 MEQ in PREMIX 1 EACH IV SCH ×4 (12:19→20:07)
[2017-12-26] MEDS: RIVAROXABAN 10 MG TABLET PO SCH (12:19)
[2017-12-26] MEDS: ONDANSETRON 4 MG/2 ML VIAL IV PRN (20:08)
[2017-12-26] MEDS: MEROPENEM 1,000 MG in SYRINGE 1 EACH IV SCH (20:12)
[2017-12-27] MEDS: SODIUM CHLORIDE 0.9% 1,000 ML IV SCH (05:27)
[2017-12-27 05:32] LABS: Basophils # 0.2 10*3/uL (0.0-0.2); Basophils % 0.3 % (0.0-0.8); Hematocrit 25.8 VOL% (35.7-47.0); Hemoglobin 8.5 GM/DL (12.0-16.0); Immature Granulocytes Absolute 2.68 #; Lymphocytes # 1.1 10*3/uL (1.4-4.0); Lymphocytes % 1.6 % (21.3-54.2); Mean Corpuscular HGB Conc 32.9 GM/DL (32-36); Mean Corpuscular Hemoglobin 32 PG (27-34); Mean Corpuscular Volume 97.7 FL (87-102); Mean Platelet Volume 13.9 FL (9.6-12.0); Monocytes # 1.9 10*3/uL (0.11-0.8); Monocytes % 2.8 % (1.7-12.7); Neutrophils # 60.4 10*3/uL (1.4-7.4); Neutrophils % 91.3 % (38.7-73.9); Red Blood Count 2.64 MC/CUMM (3.8-5.5); Red Cell Distribution Width 17.4 % (9.3-17.3)
[2017-12-27 05:37] LABS: Platelet Count 38 T/CUMM (130-400); White Blood Count 66.3 T/CUMM (4-12)
[2017-12-27 05:58] LABS: Albumin 1.7 G/DL (3.4-5.0); Bilirubin,Total 1.1 MG/DL (0.2-1.0); Calcium 6.7 MG/DL (8.5-10.1); Osmolality,Calculated 272.5 MOS/KG (273-304); Potassium 3.7 MMOL/L (3.5-5.1); Total Protein 6.2 G/DL (6.4-8.3)
[2017-12-27 06:08] LABS: Lymphocytes 1 % (20-55); Platelet Estimate Decreased; Segmented Neutrophils 96 % (50-85); Total Cells Counted 100
[2017-12-27 06:09] LABS: Hypochromasia 1+; Ovalocytes Slight
[2017-12-27] MEDS: ACETAMINOPHEN 325 MG TABLET PO PRN (06:51)
[2017-12-27] MEDS: POTASSIUM CHLORIDE 20 MEQ TABLET PO SCH (09:38)
[2017-12-27] MEDS: RIVAROXABAN 10 MG TABLET PO SCH (09:38)
[2017-12-27] MEDS: MEROPENEM 1,000 MG in SYRINGE 1 EACH IV SCH ×2 (09:38→20:19)
[2017-12-27] MEDS: TEMAZEPAM 7.5 MG CAPSULE PO PRN (23:56)
[2017-12-28 05:15] LABS: Basophils # 0.1 10*3/uL (0.0-0.2); Basophils % 0.2 % (0.0-0.8); Hematocrit 26.3 VOL% (35.7-47.0); Hemoglobin 8.5 GM/DL (12.0-16.0); Immature Granulocytes % 1.2 %; Immature Granulocytes Absolute 0.31 #; Lymphocytes % 3.9 % (21.3-54.2); Mean Corpuscular HGB Conc 32.3 GM/DL (32-36); Mean Corpuscular Hemoglobin 32 PG (27-34); Mean Corpuscular Volume 99.2 FL (87-102); Mean Platelet Volume 12.8 FL (9.6-12.0); Monocytes # 0.5 10*3/uL (0.11-0.8); Neutrophils # 23.8 10*3/uL (1.4-7.4); Neutrophils % 92.7 % (38.7-73.9); Red Blood Count 2.65 MC/CUMM (3.8-5.5); Red Cell Distribution Width 17.2 % (9.3-17.3); White Blood Count 25.7 T/CUMM (4-12)
[2017-12-28 05:31] LABS: Platelet Count 34 T/CUMM (130-400)
[2017-12-28 05:37] LABS: Lymphocytes 4 % (20-55); Platelet Estimate Decreased; Segmented Neutrophils 94 % (50-85); Total Cells Counted 100
[2017-12-28 05:38] LABS: Giant Platelets Few; Hypochromasia 1+
[2017-12-28 05:40] LABS: Albumin 1.9 G/DL (3.4-5.0); Bilirubin,Total 0.8 MG/DL (0.2-1.0); Calcium 7.2 MG/DL (8.5-10.1); Potassium 3.8 MMOL/L (3.5-5.1); Total Protein 6.5 G/DL (6.4-8.3)
[2017-12-28] MEDS: POTASSIUM CHLORIDE 20 MEQ TABLET PO SCH (09:39)
[2017-12-28] MEDS: RIVAROXABAN 10 MG TABLET PO SCH (09:39)
[2017-12-28] MEDS: MEROPENEM 1,000 MG in SYRINGE 1 EACH IV SCH ×2 (09:40→20:27)
[2017-12-28] MEDS ORDERED: MAGNESIUM SULF RIDER 4 GM in PREMIX 1 EACH IV ONE (18:00)
[2017-12-28] MEDS: TEMAZEPAM 7.5 MG CAPSULE PO PRN (20:28)
[2017-12-29] MEDS: ACETAMINOPHEN 325 MG TABLET PO PRN (02:04)
[2017-12-29 05:43] LABS: Basophils # 0.1 10*3/uL (0.0-0.2); Basophils % 0.7 % (0.0-0.8); Hematocrit 25.7 VOL% (35.7-47.0); Hemoglobin 8.2 GM/DL (12.0-16.0); Immature Granulocytes % 1.2 %; Immature Granulocytes Absolute 0.08 #; Lymphocytes # 0.8 10*3/uL (1.4-4.0); Lymphocytes % 12.1 % (21.3-54.2); Mean Corpuscular HGB Conc 31.9 GM/DL (32-36); Mean Corpuscular Hemoglobin 31 PG (27-34); Mean Corpuscular Volume 98.1 FL (87-102); Mean Platelet Volume 12.9 FL (9.6-12.0); Monocytes # 0.4 10*3/uL (0.11-0.8); Monocytes % 5.4 % (1.7-12.7); Neutrophils # 5.4 10*3/uL (1.4-7.4); Neutrophils % 80.6 % (38.7-73.9); Red Blood Count 2.62 MC/CUMM (3.8-5.5); Red Cell Distribution Width 17.2 % (9.3-17.3); White Blood Count 6.7 T/CUMM (4-12)
[2017-12-29 06:04] LABS: Platelet Count 37 T/CUMM (130-400)
[2017-12-29 06:09] LABS: Giant Platelets Few; Hypochromasia 1+; Platelet Estimate Decreased
[2017-12-29 06:18] LABS: Albumin 1.9 G/DL (3.4-5.0); Bilirubin,Total 0.7 MG/DL (0.2-1.0); Calcium 7.7 MG/DL (8.5-10.1); Osmolality,Calculated 262.4 MOS/KG (273-304); Potassium 3.7 MMOL/L (3.5-5.1); Total Protein 6.4 G/DL (6.4-8.3)
[2017-12-29 09:01] LABS: Albumin (SPE) 2.4 G/DL (3.2-5.3); Albumin (SPE) Rel % 37.5 %; Alpha 1 (SPE) 0.4 G/DL (0.1-0.4); Total Protein (Chem) 6.4 G/DL (6.4-8.3)
[2017-12-29 09:02] LABS: Alpha 1 (SPE) Rel % 6.1 %; Alpha 2 (SPE) 0.7 G/DL (0.4-1.0); Alpha 2 (SPE) Rel % 11.5 %; Beta (SPE) 0.9 G/DL (0.5-1.1); Beta (SPE) Rel % 13.7 %; Gamma (SPE) Rel % 31.2 %
[2017-12-29] MEDS: MEROPENEM 1,000 MG in SYRINGE 1 EACH IV SCH ×2 (10:31→20:49)
[2017-12-29] MEDS: SODIUM CHLORIDE 0.9% 1,000 ML IV SCH ×2 (13:20→23:05)
[2017-12-29] MEDS: RIVAROXABAN 10 MG TABLET PO SCH (13:31)
[2017-12-29] MEDS: POTASSIUM CHLORIDE 20 MEQ TABLET PO SCH (13:32)
[2017-12-29] MEDS: TEMAZEPAM 7.5 MG CAPSULE PO PRN (20:55)
[2017-12-30 06:20] LABS: Basophils # 0.1 10*3/uL (0.0-0.2); Basophils % 2.1 % (0.0-0.8); Hematocrit 26.5 VOL% (35.7-47.0); Hemoglobin 8.6 GM/DL (12.0-16.0); Immature Granulocytes % 1.4 %; Immature Granulocytes Absolute 0.04 #; Lymphocytes # 0.8 10*3/uL (1.4-4.0); Lymphocytes % 28.8 % (21.3-54.2); Mean Corpuscular HGB Conc 32.5 GM/DL (32-36); Mean Corpuscular Hemoglobin 32 PG (27-34); Mean Corpuscular Volume 97.1 FL (87-102); Mean Platelet Volume 12.5 FL (9.6-12.0); Monocytes # 0.3 10*3/uL (0.11-0.8); Monocytes % 10.7 % (1.7-12.7); Neutrophils # 1.6 10*3/uL (1.4-7.4); Platelet Count 70 T/CUMM (130-400); Red Blood Count 2.73 MC/CUMM (3.8-5.5); White Blood Count 2.8 T/CUMM (4-12)
[2017-12-30 06:59] LABS: Bilirubin,Total 0.8 MG/DL (0.2-1.0); Calcium 7.9 MG/DL (8.5-10.1); Osmolality,Calculated 265.2 MOS/KG (273-304); Potassium 3.7 MMOL/L (3.5-5.1); Total Protein 6.7 G/DL (6.4-8.3)
[2017-12-30 07:05] LABS: Lymphocytes 18 % (20-55); Segmented Neutrophils 68 % (50-85); Total Cells Counted 100
[2017-12-30 07:06] LABS: Hypochromasia 1+; Macrocytosis 1+; Platelet Estimate Decreased
[2017-12-30] MEDS: MEROPENEM 1,000 MG in SYRINGE 1 EACH IV SCH ×2 (09:33→21:40)
[2017-12-30] MEDS: RIVAROXABAN 10 MG TABLET PO SCH (09:33)
[2017-12-30] MEDS: POTASSIUM CHLORIDE 20 MEQ TABLET PO SCH (09:33)
[2017-12-30] MEDS: ONDANSETRON 4 MG/2 ML VIAL IV PRN (09:39)
[2017-12-30] MEDS: TEMAZEPAM 7.5 MG CAPSULE PO PRN (21:45)
[2017-12-31 04:27] LABS: Basophils # 0.1 10*3/uL (0.0-0.2); Basophils % 3.3 % (0.0-0.8); Hematocrit 26.6 VOL% (35.7-47.0); Hemoglobin 8.3 GM/DL (12.0-16.0); Immature Granulocytes % 1.9 %; Immature Granulocytes Absolute 0.04 #; Lymphocytes # 0.8 10*3/uL (1.4-4.0); Lymphocytes % 36.3 % (21.3-54.2); Mean Corpuscular HGB Conc 31.2 GM/DL (32-36); Mean Corpuscular Hemoglobin 31 PG (27-34); Mean Corpuscular Volume 98.9 FL (87-102); Mean Platelet Volume 11.5 FL (9.6-12.0); Monocytes # 0.3 10*3/uL (0.11-0.8); Monocytes % 12.6 % (1.7-12.7); Neutrophils % 45.9 % (38.7-73.9); Platelet Count 144 T/CUMM (130-400); Red Blood Count 2.69 MC/CUMM (3.8-5.5); White Blood Count 2.2 T/CUMM (4-12)
[2017-12-31 04:59] LABS: Albumin 1.9 G/DL (3.4-5.0); Bilirubin,Total 1.8 MG/DL (0.2-1.0); Calcium 8.2 MG/DL (8.5-10.1); Osmolality,Calculated 267.1 MOS/KG (273-304); Potassium 3.7 MMOL/L (3.5-5.1); Total Protein 6.9 G/DL (6.4-8.3)
[2017-12-31] MEDS: SODIUM CHLORIDE 0.9% 1,000 ML IV SCH (05:05)
[2017-12-31 06:06] LABS: Eosinophils 1 % (0-10); Hypochromasia 1+; Lymphocytes 40 % (20-55); Segmented Neutrophils 43 % (50-85); Total Cells Counted 100
[2017-12-31 06:07] LABS: Macrocytosis 1+; Platelet Estimate Adequate
[2017-12-31] MEDS: ONDANSETRON 4 MG/2 ML VIAL IV PRN (08:03)
[2017-12-31] MEDS ORDERED: MAGNESIUM SULF RIDER 2 GM in PREMIX 1 EACH IV ONE (08:21)
[2017-12-31 08:32] VITALS: BP 118/70
[2017-12-31] MEDS: MEROPENEM 1,000 MG in SYRINGE 1 EACH IV SCH (09:36)
[2017-12-31] MEDS: RIVAROXABAN 10 MG TABLET PO SCH (09:36)
[2017-12-31] MEDS: POTASSIUM CHLORIDE 20 MEQ TABLET PO SCH (09:36)
== END 2017-12-31 12:40 | disposition home health service (06) | DRG 872 ==
LOC: N.ED 15:32 → N.EDINP 18:31 → N.4E 19:35
PROVIDERS: ADMIT Specialist; ATTEND Specialist

== ENCOUNTER 2018-02-12 11:50 | Inpatient (IN) ==
[2018-02-12] MEDS ORDERED: ONDANSETRON 4 MG/2 ML VIAL IV STA (14:32)
[2018-02-12] MEDS ORDERED: ONDANSETRON ODT 4 MG TABLET PO STA (14:59)
[2018-02-12 15:01] LABS: Apearance,Urine CLOUDY (Clear); Bacteria,Urine Few /HPF (Few); Bilirubin,Urine Negative (Negative); Blood, Urine Moderate mg/dL (Negative); Glucose,Urine (UA) Negative (Negative); Ketones,Urine Negative (Negative); Nitrite,Urine Negative (Negative); Protein,Urine 100 MG/DL; RBC,Urine 6 /HPF (0-4); Squamous Epithelial Cell,Urine Occasional /HPF (0-10); Urine Color Yellow (Yellow); Urine Specific Gravity 1.009 (1.001-1.035); Urine Urobilinogen < 2.0 EU/DL (0.2-1.0); WBC,Urine 469 /HPF (0-6)
[2018-02-12 15:09] LABS: Basophils # 0.2 10*3/uL (0.0-0.2); Basophils % 0.4 % (0.0-0.8); Hematocrit 25.1 VOL% (35.7-47.0); Hemoglobin 7.9 GM/DL (12.0-16.0); Immature Granulocytes % 11.7 %; Lymphocytes # 2.1 10*3/uL (1.4-4.0); Lymphocytes % 3.2 % (21.3-54.2); Mean Corpuscular HGB Conc 31.5 GM/DL (32-36); Mean Corpuscular Hemoglobin 31 PG (27-34); Mean Corpuscular Volume 98.4 FL (87-102); Monocytes # 13.4 10*3/uL (0.11-0.8); Monocytes % 20.7 % (1.7-12.7); Neutrophils # 41.6 10*3/uL (1.4-7.4); Platelet Count 239 T/CUMM (130-400); Red Blood Count 2.55 MC/CUMM (3.8-5.5); Red Cell Distribution Width 22.1 % (9.3-17.3)
[2018-02-12 15:12] LABS: White Blood Count 64.9 T/CUMM (4-12)
[2018-02-12] MEDS ORDERED: PIPERACILLIN/TAZOBACTAM 3,375 MG in SODIUM CHLORIDE 0.9% 100 ML IV STA (15:17)
[2018-02-12 15:25] LABS: Alanine Aminotransferase 11 U/L (13-56); Albumin 2.9 G/DL (3.4-5.0); Alkaline Phosphatase 169 U/L (45-117); Amylase 40 U/L (25-115); Aspartate Amino Transferase 8 U/L (0-37); Blood Urea Nitrogen 72 MG/DL (7-18); Calcium 8.7 MG/DL (8.5-10.1); Glucose 203 MG/DL (74-106); Osmolality,Calculated 292.4 MOS/KG (273-304); Potassium 5.5 MMOL/L (3.5-5.1); Sodium 133 MMOL/L (136-145); Total Protein 8.9 G/DL (6.4-8.3); Troponin I Only < 0.015 NG/ML (0.00-0.045)
[2018-02-12 15:51] LABS: Basophils # 0.3 10*3/uL (0.0-0.2); Basophils % 0.4 % (0.0-0.8); Hematocrit 26.4 VOL% (35.7-47.0); Hemoglobin 8.1 GM/DL (12.0-16.0); Immature Granulocytes % 11.9 %; Immature Granulocytes Absolute 7.87 #; Lymphocytes # 2.1 10*3/uL (1.4-4.0); Lymphocytes % 3.1 % (21.3-54.2); Mean Corpuscular HGB Conc 30.7 GM/DL (32-36); Mean Corpuscular Hemoglobin 30 PG (27-34); Mean Corpuscular Volume 98.9 FL (87-102); Mean Platelet Volume 12.2 FL (9.6-12.0); Monocytes # 12.5 10*3/uL (0.11-0.8); Monocytes % 18.8 % (1.7-12.7); Neutrophils # 43.6 10*3/uL (1.4-7.4); Neutrophils % 65.8 % (38.7-73.9); Platelet Count 154 T/CUMM (130-400); Red Cell Distribution Width 22.3 % (9.3-17.3); White Blood Count 66.3 T/CUMM (4-12)
[2018-02-12 16:00] LABS: Red Blood Count 2.67 MC/CUMM (3.8-5.5)
[2018-02-12 16:16] LABS: Lactic Acid 4.1 MMOL/L (0.4-2.0)
[2018-02-12] MEDS ORDERED: ONDANSETRON 4 MG/2 ML VIAL IV PRN (16:24)
[2018-02-12] MEDS ORDERED: SODIUM CHLORIDE 0.9% 1,650 ML IV ONE (16:24)
[2018-02-12] MEDS ORDERED: GLUCAGON 1 MG VIAL IM PRN (16:30)
[2018-02-12] MEDS ORDERED: DEXTROSE 50% 25 GM/50 ML VIAL IV PRN (16:30)
[2018-02-12] MEDS ORDERED: ENOXAPARIN 30 MG/0.3 ML SYRINGE SUBCUT SCH (16:30)
[2018-02-12] MEDS: SODIUM CHLORIDE 0.9% 1,000 ML IV SCH (17:27)
[2018-02-12 18:22] LABS: Band Neutrophils 1 % (0-10); Lymphocytes 6 % (20-55); Segmented Neutrophils 77 % (50-85); Total Cells Counted 100
[2018-02-12 18:23] LABS: Anisocytosis 1+; Ovalocytes Slight; Platelet Estimate Normal; Polychromasia Few
[2018-02-12 18:25] LABS: Anisocytosis Slight; Band Neutrophils 1 % (0-10); Lymphocytes 7 % (20-55); Ovalocytes Slight; Platelet Estimate Normal; Polychromasia Slight; Schistocytes Few; Segmented Neutrophils 77 % (50-85); Total Cells Counted 100
[2018-02-12] MEDS ORDERED: HYDROCORTISONE 100 MG VIAL IV ONE (18:46)
[2018-02-12] MEDS: INSULIN REGULAR 100 UNIT/ML SUBCUT SCH ×2 (18:53→23:16)
[2018-02-12 19:53] LABS: Calcium 7.6 MG/DL (8.5-10.1); Osmolality,Calculated 292.1 MOS/KG (273-304); Potassium 5.5 MMOL/L (3.5-5.1)
[2018-02-12] MEDS: HEPARIN 5,000 UNIT/1 ML VIAL SUBCUT SCH (23:18)
[2018-02-13] MEDS: SODIUM CHLORIDE 0.9% 1,000 ML IV SCH (00:30)
[2018-02-13] MEDS: HYDROCORTISONE 100 MG VIAL IV SCH ×3 (01:51→16:30)
[2018-02-13] MEDS: PIPERACILLIN/TAZOBACTAM 3,375 MG in SODIUM CHLORIDE 0.9% 100 ML IV SCH ×2 (03:07→16:33)
[2018-02-13 05:55] LABS: Basophils # 0.1 10*3/uL (0.0-0.2); Basophils % 0.3 % (0.0-0.8); Hematocrit 20.9 VOL% (35.7-47.0); Hemoglobin 6.5 GM/DL (12.0-16.0); Immature Granulocytes % 14.9 %; Immature Granulocytes Absolute 7.74 #; Lymphocytes # 1.4 10*3/uL (1.4-4.0); Lymphocytes % 2.7 % (21.3-54.2); Mean Corpuscular HGB Conc 31.1 GM/DL (32-36); Mean Corpuscular Hemoglobin 31 PG (27-34); Mean Corpuscular Volume 98.6 FL (87-102); Mean Platelet Volume 11.4 FL (9.6-12.0); Monocytes # 4.9 10*3/uL (0.11-0.8); Monocytes % 9.4 % (1.7-12.7); NRBC # 0.02 10*3/uL; Neutrophils # 37.8 10*3/uL (1.4-7.4); Neutrophils % 72.7 % (38.7-73.9); Platelet Count 237 T/CUMM (130-400); Red Blood Count 2.12 MC/CUMM (3.8-5.5); Red Cell Distribution Width 21.8 % (9.3-17.3)
[2018-02-13 06:01] LABS: White Blood Count 51.9 T/CUMM (4-12)
[2018-02-13 06:17] LABS: Band Neutrophils 6 % (0-10); Hypochromasia 1+; Lymphocytes 5 % (20-55); Platelet Estimate Adequate; Segmented Neutrophils 76 % (50-85); Total Cells Counted 100
[2018-02-13 06:22] LABS: Calcium 7.6 MG/DL (8.5-10.1); Osmolality,Calculated 297.7 MOS/KG (273-304); Potassium 5.2 MMOL/L (3.5-5.1)
[2018-02-13] MEDS: HEPARIN 5,000 UNIT/1 ML VIAL SUBCUT SCH ×3 (07:17→22:53)
[2018-02-13] MEDS ORDERED: FLUCONAZOLE 200 MG TABLET PO ONE (08:09)
[2018-02-13] MEDS ORDERED: SODIUM CHLORIDE 0.9% 1,000 ML IV PRN (08:24)
[2018-02-13] MEDS ORDERED: LIDOCAINE 2% TOP JELLY 5 ML TUBE TOP PRN (08:50)
[2018-02-13] MEDS ORDERED: RIVAROXABAN 10 MG TABLET PO SCH (09:00)
[2018-02-13] MEDS: HYDROXYUREA 500 MG CAPSULE PO SCH (09:13)
[2018-02-13] MEDS: DEXAMETHASONE 0.5 MG TABLET PO SCH (09:13)
[2018-02-13] MEDS: INSULIN REGULAR 100 UNIT/ML SUBCUT SCH ×4 (09:14→22:53)
[2018-02-13] MEDS: PHENAZOPYRIDINE 95 MG TABLET PO SCH ×2 (11:58→16:30)
[2018-02-13] MEDS: MORPHINE 4 MG/1 ML VIAL IV PRN (20:42)
[2018-02-14] MEDS: SODIUM CHLORIDE 0.9% 1,000 ML IV SCH ×3 (01:00→16:47)
[2018-02-14] MEDS: HYDROCORTISONE 100 MG VIAL IV SCH ×3 (01:10→17:33)
[2018-02-14] MEDS: PIPERACILLIN/TAZOBACTAM 3,375 MG in SODIUM CHLORIDE 0.9% 100 ML IV SCH ×2 (03:10→18:25)
[2018-02-14 05:51] LABS: Basophils # 0.1 10*3/uL (0.0-0.2); Basophils % 0.3 % (0.0-0.8); Hematocrit 31.4 VOL% (35.7-47.0); Hemoglobin 10.2 GM/DL (12.0-16.0); Immature Granulocytes % 17.1 %; Immature Granulocytes Absolute 7.22 #; Lymphocytes # 1.4 10*3/uL (1.4-4.0); Lymphocytes % 3.4 % (21.3-54.2); Mean Corpuscular HGB Conc 32.5 GM/DL (32-36); Mean Corpuscular Hemoglobin 31 PG (27-34); Mean Corpuscular Volume 95.4 FL (87-102); Mean Platelet Volume 11.2 FL (9.6-12.0); Monocytes # 5.9 10*3/uL (0.11-0.8); Neutrophils # 27.5 10*3/uL (1.4-7.4); Neutrophils % 65.2 % (38.7-73.9); Platelet Count 206 T/CUMM (130-400); Red Blood Count 3.29 MC/CUMM (3.8-5.5); Red Cell Distribution Width 19.4 % (9.3-17.3)
[2018-02-14] MEDS: HEPARIN 5,000 UNIT/1 ML VIAL SUBCUT SCH ×3 (05:52→21:32)
[2018-02-14 05:57] LABS: White Blood Count 42.1 T/CUMM (4-12)
[2018-02-14 06:08] LABS: Calcium 7.7 MG/DL (8.5-10.1); Osmolality,Calculated 292.7 MOS/KG (273-304); Potassium 4.3 MMOL/L (3.5-5.1)
[2018-02-14 07:21] LABS: Lymphocytes 6 % (20-55); Metamyelocytes 1 %; Segmented Neutrophils 77 % (50-85); Total Cells Counted 100
[2018-02-14 07:23] LABS: Hypochromasia 1+
[2018-02-14 07:24] LABS: Macrocytosis 1+
[2018-02-14 07:25] LABS: Anisocytosis 1+; Ovalocytes Slight
[2018-02-14] MEDS: INSULIN REGULAR 100 UNIT/ML SUBCUT SCH ×4 (08:02→21:41)
[2018-02-14] MEDS: PHENAZOPYRIDINE 95 MG TABLET PO SCH ×3 (08:52→17:34)
[2018-02-14] MEDS: HYDROXYUREA 500 MG CAPSULE PO SCH (08:52)
[2018-02-14 09:14] LABS: Total Protein 7.5 G/DL (6.4-8.3)
[2018-02-14] MEDS: DEXAMETHASONE 0.5 MG TABLET PO SCH (09:33)
[2018-02-14] MEDS ORDERED: MAGNESIUM SULF RIDER 4 GM in PREMIX 1 EACH IV ONE (10:00)
[2018-02-14] MEDS ORDERED: SODIUM BICARB INJ 100 MEQ in SODIUM CHLORIDE 0.45% 1,000 ML IV SCH (11:00)
[2018-02-14 13:12] LABS: Total Protein (Chem) 7.5 G/DL (6.4-8.3)
[2018-02-14 13:13] LABS: Albumin (SPE) 3.4 G/DL (3.2-5.3); Albumin (SPE) Rel % 44.8 %; Alpha 1 (SPE) 0.3 G/DL (0.1-0.4); Alpha 1 (SPE) Rel % 3.7 %; Alpha 2 (SPE) 0.8 G/DL (0.4-1.0); Alpha 2 (SPE) Rel % 10.5 %; Beta (SPE) 0.9 G/DL (0.5-1.1); Beta (SPE) Rel % 12.6 %; Gamma (SPE) 2.1 G/DL (0.7-1.7); Gamma (SPE) Rel % 28.4 %
[2018-02-15] MEDS: HYDROCORTISONE 100 MG VIAL IV SCH ×3 (00:47→16:43)
[2018-02-15] MEDS: HEPARIN 5,000 UNIT/1 ML VIAL SUBCUT SCH (05:18)
[2018-02-15 05:19] LABS: Basophils % 0.2 % (0.0-0.8); Hematocrit 29.9 VOL% (35.7-47.0); Hemoglobin 9.8 GM/DL (12.0-16.0); Immature Granulocytes % 13.6 %; Immature Granulocytes Absolute 2.28 #; Lymphocytes # 0.8 10*3/uL (1.4-4.0); Mean Corpuscular HGB Conc 32.8 GM/DL (32-36); Mean Corpuscular Hemoglobin 30 PG (27-34); Mean Corpuscular Volume 92.6 FL (87-102); Mean Platelet Volume 11.3 FL (9.6-12.0); Monocytes # 2.2 10*3/uL (0.11-0.8); Neutrophils # 11.4 10*3/uL (1.4-7.4); Neutrophils % 68.2 % (38.7-73.9); Red Blood Count 3.23 MC/CUMM (3.8-5.5)
[2018-02-15 05:45] LABS: Calcium 7.5 MG/DL (8.5-10.1); Osmolality,Calculated 291.8 MOS/KG (273-304); Potassium 3.4 MMOL/L (3.5-5.1)
[2018-02-15 06:23] LABS: Platelet Count 258 T/CUMM (130-400)
[2018-02-15 06:24] LABS: White Blood Count 16.7 T/CUMM (4-12)
[2018-02-15 06:46] LABS: Band Neutrophils 1 % (0-10); Hypochromasia 1+; Lymphocytes 7 % (20-55); Platelet Estimate Adequate; Segmented Neutrophils 83 % (50-85); Total Cells Counted 100
[2018-02-15 06:47] LABS: Macrocytosis Slight; Ovalocytes Slight
[2018-02-15] MEDS: INSULIN REGULAR 100 UNIT/ML SUBCUT SCH ×4 (07:23→21:17)
[2018-02-15] MEDS: HYDROXYUREA 500 MG CAPSULE PO SCH (09:26)
[2018-02-15] MEDS: PHENAZOPYRIDINE 95 MG TABLET PO SCH ×3 (09:27→16:52)
[2018-02-15] MEDS: DEXAMETHASONE 0.5 MG TABLET PO SCH (09:27)
[2018-02-15] MEDS: PIPERACILLIN/TAZOBACTAM 3,375 MG in SODIUM CHLORIDE 0.9% 100 ML IV SCH ×2 (09:30→20:55)
[2018-02-15] MEDS ORDERED: POTASSIUM CHLORIDE 20 MEQ TABLET PO ONE (11:02)
[2018-02-15] MEDS: RIVAROXABAN 20 MG TABLET PO SCH (13:05)
[2018-02-15] MEDS: SODIUM BICARB INJ 150 MEQ in SODIUM CHLORIDE 0.45% 1,000 ML IV SCH (16:00)
[2018-02-16] MEDS: HYDROCORTISONE 100 MG VIAL IV SCH ×3 (02:13→16:15)
[2018-02-16 05:36] LABS: Basophils % 0.2 % (0.0-0.8); Hematocrit 30.7 VOL% (35.7-47.0); Hemoglobin 10.6 GM/DL (12.0-16.0); Immature Granulocytes % 8.2 %; Immature Granulocytes Absolute 0.54 #; Lymphocytes # 0.9 10*3/uL (1.4-4.0); Lymphocytes % 13.1 % (21.3-54.2); Mean Corpuscular HGB Conc 34.5 GM/DL (32-36); Mean Corpuscular Hemoglobin 31 PG (27-34); Mean Corpuscular Volume 88.7 FL (87-102); Mean Platelet Volume 11.5 FL (9.6-12.0); Monocytes # 1.3 10*3/uL (0.11-0.8); Monocytes % 20.2 % (1.7-12.7); Neutrophils # 3.8 10*3/uL (1.4-7.4); Neutrophils % 58.3 % (38.7-73.9); Platelet Count 278 T/CUMM (130-400); Red Blood Count 3.46 MC/CUMM (3.8-5.5); Red Cell Distribution Width 18.8 % (9.3-17.3); White Blood Count 6.6 T/CUMM (4-12)
[2018-02-16 06:17] LABS: Calcium 7.5 MG/DL (8.5-10.1); Osmolality,Calculated 294.4 MOS/KG (273-304); Potassium 3.1 MMOL/L (3.5-5.1)
[2018-02-16 07:21] LABS: Total Cells Counted 100
[2018-02-16 07:22] LABS: Anisocytosis 1+; Poikilocytosis 1+
[2018-02-16] MEDS: INSULIN REGULAR 100 UNIT/ML SUBCUT SCH ×4 (08:50→21:35)
[2018-02-16] MEDS: PHENAZOPYRIDINE 95 MG TABLET PO SCH ×3 (08:50→16:15)
[2018-02-16] MEDS: RIVAROXABAN 20 MG TABLET PO SCH (08:51)
[2018-02-16] MEDS: HYDROXYUREA 500 MG CAPSULE PO SCH (08:51)
[2018-02-16] MEDS: DEXAMETHASONE 0.5 MG TABLET PO SCH (08:51)
[2018-02-16] MEDS: SODIUM BICARB INJ 150 MEQ in SODIUM CHLORIDE 0.45% 1,000 ML IV SCH (08:52)
[2018-02-16] MEDS: PIPERACILLIN/TAZOBACTAM 3,375 MG in SODIUM CHLORIDE 0.9% 100 ML IV SCH ×2 (08:53→21:34)
[2018-02-16] MEDS ORDERED: POTASSIUM CHLORIDE 20 MEQ TABLET PO ONE (11:17)
[2018-02-16] MEDS ORDERED: MAGNESIUM SULF INJ 3 GM in SODIUM CHLORIDE 0.9% 100 ML IV ONE (11:18)
[2018-02-16] MEDS: POTASSIUM CHLORIDE RIDER 10 MEQ in PREMIX 1 EACH IV SCH ×4 (11:40→14:52)
[2018-02-17] MEDS: HYDROCORTISONE 100 MG VIAL IV SCH ×3 (00:57→17:15)
[2018-02-17] MEDS: SODIUM BICARB INJ 150 MEQ in SODIUM CHLORIDE 0.45% 1,000 ML IV SCH (05:15)
[2018-02-17] MEDS ORDERED: PIPERACILLIN/TAZOBACTAM 3,375 MG in SODIUM CHLORIDE 0.9% 100 ML IV SCH (09:00)
[2018-02-17 09:26] LABS: Hypochromasia 1+; Lymphocytes 9 % (20-55); Microcytosis 1+; Ovalocytes Slight; Platelet Estimate Normal; Segmented Neutrophils 69 % (50-85); Target Cells Slight
[2018-02-17] MEDS: INSULIN REGULAR 100 UNIT/ML SUBCUT SCH ×4 (09:42→21:51)
[2018-02-17] MEDS: DEXAMETHASONE 0.5 MG TABLET PO SCH (09:46)
[2018-02-17] MEDS: PHENAZOPYRIDINE 95 MG TABLET PO SCH ×3 (09:48→17:08)
[2018-02-17] MEDS: RIVAROXABAN 20 MG TABLET PO SCH (09:48)
[2018-02-17] MEDS: HYDROXYUREA 500 MG CAPSULE PO SCH (09:48)
[2018-02-17] MEDS ORDERED: POTASSIUM CHLORIDE 20 MEQ TABLET PO ONE (10:30)
[2018-02-17 10:33] LABS: Calcium 6.7 MG/DL (8.5-10.1); Osmolality,Calculated 296.4 MOS/KG (273-304)
[2018-02-17 10:36] LABS: Potassium 2.1 MMOL/L (3.5-5.1)
[2018-02-17] MEDS ORDERED: MAGNESIUM SULF INJ 3 GM in SODIUM CHLORIDE 0.9% 100 ML IV ONE (11:30)
[2018-02-17] MEDS ORDERED: ERTAPENEM 1,000 MG in SODIUM CHLORIDE 0.9% 100 ML IV SCH (15:00)
[2018-02-17] MEDS: POTASSIUM CHLORIDE RIDER 10 MEQ in PREMIX 1 EACH IV SCH (15:28)
[2018-02-17] MEDS ORDERED: ERTAPENEM 500 MG in SODIUM CHLORIDE 0.9% 100 ML IV SCH (16:00)
[2018-02-17] MEDS: MORPHINE 4 MG/1 ML VIAL IV PRN (21:39)
[2018-02-18] MEDS: HYDROCORTISONE 100 MG VIAL IV SCH ×3 (01:46→17:06)
[2018-02-18] MEDS: POTASSIUM CHLORIDE RIDER 10 MEQ in PREMIX 1 EACH IV SCH ×5 (01:47→08:13)
[2018-02-18 06:05] LABS: Hematocrit 28.7 VOL% (35.7-47.0); Hemoglobin 9.6 GM/DL (12.0-16.0); Immature Granulocytes Absolute 0.15 #; Lymphocytes # 0.3 10*3/uL (1.4-4.0); Mean Corpuscular HGB Conc 33.4 GM/DL (32-36); Mean Corpuscular Hemoglobin 30 PG (27-34); Mean Corpuscular Volume 90.3 FL (87-102); Mean Platelet Volume 11.3 FL (9.6-12.0); Monocytes # 0.9 10*3/uL (0.11-0.8); Monocytes % 31.3 % (1.7-12.7); Neutrophils # 1.6 10*3/uL (1.4-7.4); Neutrophils % 52.7 % (38.7-73.9); Platelet Count 229 T/CUMM (130-400); Red Blood Count 3.18 MC/CUMM (3.8-5.5)
[2018-02-18 06:43] LABS: Calcium 6.6 MG/DL (8.5-10.1); Osmolality,Calculated 287.7 MOS/KG (273-304); Potassium 2.9 MMOL/L (3.5-5.1)
[2018-02-18 06:44] LABS: Lymphocytes 18 % (20-55); Segmented Neutrophils 62 % (50-85); Total Cells Counted 100
[2018-02-18 06:45] LABS: Giant Platelets Few; Hypochromasia 1+; Microcytosis Slight; Platelet Estimate Adequate
[2018-02-18] MEDS: HYDROXYUREA 500 MG CAPSULE PO SCH (08:56)
[2018-02-18] MEDS: DEXAMETHASONE 0.5 MG TABLET PO SCH (08:57)
[2018-02-18] MEDS: RIVAROXABAN 20 MG TABLET PO SCH (08:57)
[2018-02-18] MEDS: INSULIN REGULAR 100 UNIT/ML SUBCUT SCH ×4 (08:57→20:56)
[2018-02-18] MEDS: PHENAZOPYRIDINE 95 MG TABLET PO SCH ×3 (08:57→17:07)
[2018-02-18] MEDS: POTASSIUM CHLORIDE RIDER 10 MEQ in PREMIX 1 EACH IV PRN ×5 (11:10→23:26)
[2018-02-18] MEDS: ERTAPENEM 1,000 MG in SODIUM CHLORIDE 0.9% 100 ML IV SCH (15:03)
[2018-02-18] MEDS: POTASSIUM CHLORIDE 20 MEQ TABLET PO SCH (20:55)
[2018-02-19] MEDS: HYDROCORTISONE 100 MG VIAL IV SCH ×3 (00:36→17:25)
[2018-02-19 04:53] LABS: Hematocrit 27.4 VOL% (35.7-47.0); Hemoglobin 9.2 GM/DL (12.0-16.0); Immature Granulocytes % 2.8 %; Immature Granulocytes Absolute 0.06 #; Lymphocytes # 0.5 10*3/uL (1.4-4.0); Lymphocytes % 22.6 % (21.3-54.2); Mean Corpuscular HGB Conc 33.6 GM/DL (32-36); Mean Corpuscular Hemoglobin 31 PG (27-34); Mean Corpuscular Volume 91.3 FL (87-102); Mean Platelet Volume 11.3 FL (9.6-12.0); Monocytes # 0.7 10*3/uL (0.11-0.8); Monocytes % 30.9 % (1.7-12.7); Neutrophils % 43.7 % (38.7-73.9); Platelet Count 203 T/CUMM (130-400); Red Cell Distribution Width 17.6 % (9.3-17.3); White Blood Count 2.2 T/CUMM (4-12)
[2018-02-19 05:30] LABS: Lymphocytes 29 % (20-55); Platelet Estimate Normal; Segmented Neutrophils 45 % (50-85); Total Cells Counted 100
[2018-02-19 06:46] LABS: Calcium 6.7 MG/DL (8.5-10.1); Osmolality,Calculated 280.8 MOS/KG (273-304); Potassium 3.3 MMOL/L (3.5-5.1)
[2018-02-19] MEDS: INSULIN REGULAR 100 UNIT/ML SUBCUT SCH ×4 (08:14→20:35)
[2018-02-19] MEDS: DEXAMETHASONE 0.5 MG TABLET PO SCH (08:58)
[2018-02-19] MEDS: PHENAZOPYRIDINE 95 MG TABLET PO SCH ×3 (08:58→17:25)
[2018-02-19] MEDS: HYDROXYUREA 500 MG CAPSULE PO SCH (08:58)
[2018-02-19] MEDS: POTASSIUM CHLORIDE 20 MEQ TABLET PO SCH ×2 (08:59→20:35)
[2018-02-19] MEDS: RIVAROXABAN 20 MG TABLET PO SCH (09:00)
[2018-02-19] MEDS: ERTAPENEM 1,000 MG in SODIUM CHLORIDE 0.9% 100 ML IV SCH (09:32)
[2018-02-19] MEDS ORDERED: CALCIUM (CITRATE) 200 MG TABLET PO ONE (12:08)
[2018-02-19] MEDS ORDERED: CALCIUM GLUCONATE 2,000 MG in SODIUM CHLORIDE 0.9% 100 ML IV PRN (12:28)
[2018-02-20] MEDS: HYDROCORTISONE 100 MG VIAL IV SCH ×2 (01:50→08:48)
[2018-02-20 03:12] LABS: Calcium 6.7 MG/DL (8.5-10.1); Osmolality,Calculated 281.7 MOS/KG (273-304); Potassium 3.4 MMOL/L (3.5-5.1)
[2018-02-20] MEDS: INSULIN REGULAR 100 UNIT/ML SUBCUT SCH ×2 (08:04→11:56)
[2018-02-20] MEDS: HYDROXYUREA 500 MG CAPSULE PO SCH (08:47)
[2018-02-20] MEDS: RIVAROXABAN 20 MG TABLET PO SCH (08:48)
[2018-02-20] MEDS: PHENAZOPYRIDINE 95 MG TABLET PO SCH ×2 (08:48→11:50)
[2018-02-20] MEDS: POTASSIUM CHLORIDE 20 MEQ TABLET PO SCH (08:48)
[2018-02-20] MEDS: ERTAPENEM 1,000 MG in SODIUM CHLORIDE 0.9% 100 ML IV SCH (08:49)
[2018-02-20] MEDS: DEXAMETHASONE 0.5 MG TABLET PO SCH (10:45)
[2018-02-20] MEDS ORDERED: CALCIUM GLUCONATE 2,000 MG in SODIUM CHLORIDE 0.9% 100 ML IV PRN (11:13)
[2018-02-20] MEDS ORDERED: POTASSIUM CHLORIDE 20 MEQ TABLET PO ONE (11:14)
[2018-02-20 11:39] VITALS: BP 134/74
== END 2018-02-20 13:20 | disposition home or self-care (01) | DRG 872 ==
LOC: N.ED 11:50 → N.EDINP 16:24 → SUATTDRO 16:25 → N.EDINP 18:02 → N.2E 18:06
PROVIDERS: ADMIT Hospitalist; ATTEND Internal Medicine Nephrology

== ENCOUNTER 2019-04-22 15:26 | Inpatient (IN) ==
[2019-04-22 17:31] LABS: Apearance,Urine CLOUDY (Clear); Bacteria,Urine Many /HPF (Few); Bilirubin,Urine Negative (Negative); Blood, Urine Large mg/dL (Negative); Glucose,Urine (UA) Negative (Negative); Ketones,Urine Negative (Negative); Mucus,Urine Occasional /LPF (Occasional); Nitrite,Urine Negative (Negative); Protein,Urine 100 MG/DL; RBC,Urine 143 /HPF (0-4); Urine Color Red (Yellow); Urine Specific Gravity 1.006 (1.001-1.035); Urine Urobilinogen < 2.0 EU/DL (0.2-1.0); WBC,Urine 93 /HPF (0-6)
[2019-04-22 18:05] LABS: Basophils # 0.1 10*3/uL (0.0-0.2); Basophils % 0.4 % (0.0-0.8); Hematocrit 35.7 VOL% (35.7-47.0); Hemoglobin 11.1 GM/DL (12.0-16.0); Immature Granulocytes % 3.9 %; Immature Granulocytes Absolute 0.63 #; Lymphocytes # 1.6 10*3/uL (1.4-4.0); Lymphocytes % 10.1 % (21.3-54.2); Mean Corpuscular HGB Conc 31.1 GM/DL (32-36); Mean Corpuscular Volume 115.5 FL (87-102); Monocytes % 28.2 % (1.7-12.7); NRBC # 0.02 10*3/uL; Neutrophils % 57.4 % (38.7-73.9); Red Blood Count 3.09 MC/CUMM (3.8-5.5); Red Cell Distribution Width 17.9 % (9.3-17.3); White Blood Count 16.2 T/CUMM (4-12)
[2019-04-22 18:08] LABS: Platelet Count 5 T/CUMM (130-400)
[2019-04-22 18:27] LABS: Albumin 3.8 G/DL (3.4-5.0); Bilirubin,Total 0.5 MG/DL (0.2-1.0); Calcium 9.3 MG/DL (8.5-10.1); Osmolality,Calculated 284.3 MOS/KG (273-304); Total Protein 8.7 G/DL (6.4-8.3)
[2019-04-22] MEDS ORDERED: ACETAMINOPHEN 500 MG TABLET PO STA (18:27)
[2019-04-22] MEDS ORDERED: cefTRIAXone 1,000 MG in SODIUM CHLORIDE 0.9% 100 ML IV STA (18:27)
[2019-04-22 18:32] LABS: Anisocytosis 1+; Band Neutrophils 1 % (0-10); Lymphocytes 11 % (20-55); Segmented Neutrophils 61 % (50-85); Total Cells Counted 100
[2019-04-22 18:33] LABS: Elliptocytes Few; Hypochromasia Slight; Polychromasia Few; Schistocytes Few
[2019-04-22 18:34] LABS: Platelet Estimate Decreased; Tear Drop Cells Few
[2019-04-22] MEDS ORDERED: POTASSIUM CHLORIDE 20 MEQ/15 ML UDCUP PO ONE (18:35)
[2019-04-22] MEDS ORDERED: ACETAMINOPHEN 325 MG TABLET PO PRN (19:35)
[2019-04-22] MEDS ORDERED: ONDANSETRON 4 MG/2 ML VIAL IV PRN (19:35)
[2019-04-22] MEDS ORDERED: SODIUM CHLORIDE 0.9% 1,000 ML IV PRN (19:51)
[2019-04-22] MEDS ORDERED: CEFEPIME 1,000 MG in SODIUM CHLORIDE 0.9% 100 ML IV SCH (21:00)
[2019-04-22] MEDS: PHENAZOPYRIDINE 95 MG TABLET PO SCH (21:43)
[2019-04-22] MEDS: CALCIUM (CITRATE)/VITAMIN D 200 MG-125 UNIT TABLET PO SCH (21:43)
[2019-04-22] MEDS: POTASSIUM CHLORIDE 20 MEQ TABLET PO SCH (21:43)
[2019-04-22] MEDS: DEXTROSE 5% NACL 0.45% 1,000 ML IV SCH (21:48)
[2019-04-23 05:09] LABS: Basophils % 0.2 % (0.0-0.8); Hemoglobin 9.2 GM/DL (12.0-16.0); Immature Granulocytes % 3.4 %; Immature Granulocytes Absolute 0.46 #; Lymphocytes # 1.4 10*3/uL (1.4-4.0); Lymphocytes % 10.4 % (21.3-54.2); Mean Corpuscular HGB Conc 30.7 GM/DL (32-36); Mean Corpuscular Volume 115.8 FL (87-102); Mean Platelet Volume 12.2 FL (9.6-12.0); Monocytes % 31.2 % (1.7-12.7); NRBC # 0.02 10*3/uL; Neutrophils % 54.8 % (38.7-73.9); Red Blood Count 2.59 MC/CUMM (3.8-5.5); Red Cell Distribution Width 18.2 % (9.3-17.3); White Blood Count 13.4 T/CUMM (4-12)
[2019-04-23 05:14] LABS: Platelet Count 59 T/CUMM (130-400)
[2019-04-23 05:23] LABS: Calcium 8.7 MG/DL (8.5-10.1)
[2019-04-23 06:02] LABS: Lymphocytes 13 % (20-55); Nucleated Red Blood Cells 1 (0-5); Platelet Estimate Decreased; Segmented Neutrophils 58 % (50-85); Total Cells Counted 100
[2019-04-23 06:03] LABS: Anisocytosis 2+; Macrocytosis 2+
[2019-04-23] MEDS: PHENAZOPYRIDINE 95 MG TABLET PO SCH ×2 (08:30→21:17)
[2019-04-23] MEDS: amLODIPine 5 MG TABLET PO SCH (08:30)
[2019-04-23] MEDS: POTASSIUM CHLORIDE 20 MEQ TABLET PO SCH ×2 (08:30→21:17)
[2019-04-23] MEDS: CALCIUM (CITRATE)/VITAMIN D 200 MG-125 UNIT TABLET PO SCH ×2 (08:30→21:17)
[2019-04-23] MEDS: DEXTROSE 5% NACL 0.45% 1,000 ML IV SCH (12:59)
[2019-04-23] MEDS: ERTAPENEM 1,000 MG in SODIUM CHLORIDE 0.9% 100 ML IV SCH (15:08)
[2019-04-24 02:20] LABS: Basophils % 0.1 % (0.0-0.8); Hematocrit 31.5 VOL% (35.7-47.0); Hemoglobin 9.8 GM/DL (12.0-16.0); Immature Granulocytes % 2.6 %; Lymphocytes # 1.7 10*3/uL (1.4-4.0); Lymphocytes % 14.4 % (21.3-54.2); Mean Corpuscular HGB Conc 31.1 GM/DL (32-36); Mean Corpuscular Volume 114.5 FL (87-102); Monocytes % 35.5 % (1.7-12.7); Neutrophils % 47.4 % (38.7-73.9); Platelet Count 71 T/CUMM (130-400); Red Blood Count 2.75 MC/CUMM (3.8-5.5); White Blood Count 11.7 T/CUMM (4-12)
[2019-04-24 02:32] LABS: Calcium 8.9 MG/DL (8.5-10.1); Osmolality,Calculated 276.7 MOS/KG (273-304)
[2019-04-24 04:02] LABS: Lymphocytes 12 % (20-55); Segmented Neutrophils 53 % (50-85)
[2019-04-24 04:06] LABS: Tear Drop Cells Few
[2019-04-24 04:07] LABS: Platelet Estimate Decreased; Polychromasia Few
[2019-04-24 04:10] LABS: Total Cells Counted 100
[2019-04-24] MEDS: DEXTROSE 5% NACL 0.45% 1,000 ML IV SCH (06:10)
[2019-04-24] MEDS: amLODIPine 5 MG TABLET PO SCH (08:15)
[2019-04-24] MEDS: POTASSIUM CHLORIDE 20 MEQ TABLET PO SCH ×2 (08:15→20:17)
[2019-04-24] MEDS: PHENAZOPYRIDINE 95 MG TABLET PO SCH (08:15)
[2019-04-24] MEDS: CALCIUM (CITRATE)/VITAMIN D 200 MG-125 UNIT TABLET PO SCH ×2 (08:15→20:17)
[2019-04-24] MEDS ORDERED: MAGNESIUM SULF RIDER 4 GM in PREMIX 1 EACH IV PRN (08:35)
[2019-04-24] MEDS: MAGNESIUM CHLORIDE 64 MG TABLET PO SCH (09:59)
[2019-04-24] MEDS: ERTAPENEM 1,000 MG in SODIUM CHLORIDE 0.9% 100 ML IV SCH (15:01)
[2019-04-24] MEDS: CIPROFLOXACIN 250 MG TABLET PO SCH (20:17)
[2019-04-25] MEDS: DEXTROSE 5% NACL 0.45% 1,000 ML IV SCH (02:55)
[2019-04-25 06:04] LABS: Basophils # 0.1 10*3/uL (0.0-0.2); Basophils % 0.4 % (0.0-0.8); Hematocrit 34.9 VOL% (35.7-47.0); Hemoglobin 10.9 GM/DL (12.0-16.0); Immature Granulocytes % 2.1 %; Immature Granulocytes Absolute 0.28 #; Lymphocytes # 1.1 10*3/uL (1.4-4.0); Lymphocytes % 8.2 % (21.3-54.2); Mean Corpuscular HGB Conc 31.2 GM/DL (32-36); Mean Corpuscular Volume 115.6 FL (87-102); Mean Platelet Volume 12.4 FL (9.6-12.0); Monocytes % 39.8 % (1.7-12.7); NRBC # 0.02 10*3/uL; Neutrophils % 49.5 % (38.7-73.9); Platelet Count 57 T/CUMM (130-400); Red Blood Count 3.02 MC/CUMM (3.8-5.5); White Blood Count 13.3 T/CUMM (4-12)
[2019-04-25 06:18] LABS: Calcium 9.1 MG/DL (8.5-10.1); Osmolality,Calculated 267.5 MOS/KG (273-304)
[2019-04-25 06:28] LABS: Band Neutrophils 1 % (0-10); Hypochromasia 1+; Lymphocytes 10 % (20-55); Ovalocytes Slight; Platelet Estimate Decreased; Segmented Neutrophils 54 % (50-85); Total Cells Counted 100
[2019-04-25 10:56] LABS: ABG Base Excess -1.1 MMOL/L (-2.5-2.5); ABG HCO3 23.5 MMOL/L (20-26); ABG Oxygen Saturation 96.8 % (95-100); ABG PCO2 32.5 MM HG (35-48); ABG PH 7.445 (7.35-7.45); ABG PO2 80.8 MM HG (80-95)
[2019-04-25] MEDS: CALCIUM (CITRATE)/VITAMIN D 200 MG-125 UNIT TABLET PO SCH (11:58)
[2019-04-25] MEDS: MAGNESIUM CHLORIDE 64 MG TABLET PO SCH (12:45)
[2019-04-25] MEDS: POTASSIUM CHLORIDE 20 MEQ TABLET PO SCH (12:45)
[2019-04-25] MEDS: amLODIPine 5 MG TABLET PO SCH (12:45)
[2019-04-25] MEDS: CIPROFLOXACIN 250 MG TABLET PO SCH (12:45)
[2019-04-25] MEDS: cefTRIAXone 1,000 MG in SYRINGE 1 EACH IV SCH (15:48)
[2019-04-25] MEDS: ASPIRIN 300 MG SUPP RECTAL SCH (15:48)
[2019-04-26] MEDS ORDERED: LEVALBUTEROL 1.25 MG/3 ML NEB RESP TX ONE (04:27)
[2019-04-26] MEDS ORDERED: SODIUM CHLORIDE 0.9% 500 ML IV ONE (04:37)
[2019-04-26 07:03] LABS: Basophils # 0.1 10*3/uL (0.0-0.2); Basophils % 0.3 % (0.0-0.8); Hematocrit 36.4 VOL% (35.7-47.0); Hemoglobin 11.4 GM/DL (12.0-16.0); Immature Granulocytes % 1.8 %; Immature Granulocytes Absolute 0.53 #; Lymphocytes # 1.7 10*3/uL (1.4-4.0); Lymphocytes % 5.6 % (21.3-54.2); Mean Corpuscular HGB Conc 31.3 GM/DL (32-36); Mean Corpuscular Volume 115.9 FL (87-102); Monocytes % 33.5 % (1.7-12.7); NRBC # 0.02 10*3/uL; Neutrophils % 58.8 % (38.7-73.9); Red Blood Count 3.14 MC/CUMM (3.8-5.5); Red Cell Distribution Width 18.4 % (9.3-17.3); White Blood Count 29.4 T/CUMM (4-12)
[2019-04-26 07:10] LABS: Platelet Count 38 T/CUMM (130-400)
[2019-04-26 07:22] LABS: Calcium 8.5 MG/DL (8.5-10.1); Osmolality,Calculated 273.1 MOS/KG (273-304); Risk Ratio 3.84; VLDL CHOLESTEROL 17.6 MG/DL
[2019-04-26 07:31] LABS: Lymphocytes 5 % (20-55); Nucleated Red Blood Cells 1 (0-5); Platelet Estimate Decreased; Segmented Neutrophils 59 % (50-85); Total Cells Counted 100
[2019-04-26 07:32] LABS: Hypochromasia Slight
[2019-04-26] MEDS: LEVALBUTEROL 1.25 MG/3 ML NEB RESP TX SCH ×3 (07:50→19:29)
[2019-04-26] MEDS: ASPIRIN 300 MG SUPP RECTAL SCH (08:17)
[2019-04-26] MEDS: DEXT 5% NACL 0.9% KCL 20 MEQ 20 MEQ/1,000 ML BAG IV SCH (11:01)
[2019-04-26] MEDS: cefTRIAXone 1,000 MG in SYRINGE 1 EACH IV SCH (12:44)
[2019-04-26] MEDS ORDERED: SODIUM CHLORIDE 0.9% 1,000 ML IV PRN (18:06)
[2019-04-26] MEDS: ALLOPURINOL 100 MG TABLET PO SCH (18:07)
[2019-04-26 18:52] LABS: INR 1.2; PT Patient Result 12.9 SECS (9.6-12.2)
[2019-04-27] MEDS: LEVALBUTEROL 1.25 MG/3 ML NEB RESP TX SCH ×4 (01:03→19:42)
[2019-04-27 05:04] LABS: Basophils % 0.1 % (0.0-0.8); Hematocrit 29.8 VOL% (35.7-47.0); Hemoglobin 9.2 GM/DL (12.0-16.0); Immature Granulocytes % 2.1 %; Immature Granulocytes Absolute 0.57 #; Lymphocytes # 1.5 10*3/uL (1.4-4.0); Lymphocytes % 5.4 % (21.3-54.2); Mean Corpuscular HGB Conc 30.9 GM/DL (32-36); Mean Corpuscular Volume 115.1 FL (87-102); Monocytes % 22.7 % (1.7-12.7); Neutrophils % 69.7 % (38.7-73.9); Red Blood Count 2.59 MC/CUMM (3.8-5.5); Red Cell Distribution Width 18.7 % (9.3-17.3); White Blood Count 26.8 T/CUMM (4-12)
[2019-04-27 05:12] LABS: Platelet Count 23 T/CUMM (130-400)
[2019-04-27 05:17] LABS: Osmolality,Calculated 281.7 MOS/KG (273-304)
[2019-04-27 05:24] LABS: Band Neutrophils 1 % (0-10); Lymphocytes 6 % (20-55); Segmented Neutrophils 72 % (50-85); Total Cells Counted 100
[2019-04-27 05:25] LABS: Anisocytosis 1+; Hypochromasia Slight; Macrocytosis 1+; Ovalocytes Slight
[2019-04-27 05:26] LABS: Platelet Estimate Decreased
[2019-04-27 05:30] LABS: Uric Acid 5.7 MG/DL (2.6-6.0)
[2019-04-27] MEDS: DEXT 5% NACL 0.9% KCL 20 MEQ 20 MEQ/1,000 ML BAG IV SCH (07:01)
[2019-04-27] MEDS: ALLOPURINOL 100 MG TABLET PO SCH (11:13)
[2019-04-27] MEDS: ASPIRIN 300 MG SUPP RECTAL SCH (11:13)
[2019-04-27] MEDS: cefTRIAXone 1,000 MG in SYRINGE 1 EACH IV SCH (14:37)
[2019-04-27 15:53] LABS: Lymphocytes,CSF 100 %
[2019-04-27 15:54] LABS: Red Blood Cell,CSF 13 C/CUMM; White Blood Cell,CSF 2 C/CUMM
[2019-04-27 16:04] LABS: Appearance,CSF Clear
[2019-04-27] MEDS ORDERED: guaiFENesin 200 MG/10 ML UDCUP PO PRN (21:59)
[2019-04-27] MEDS: ACETAMINOPHEN 325 MG TABLET PO PRN (22:21)
[2019-04-28] MEDS: LEVALBUTEROL 1.25 MG/3 ML NEB RESP TX SCH ×4 (01:42→19:03)
[2019-04-28] MEDS: DEXT 5% NACL 0.9% KCL 20 MEQ 20 MEQ/1,000 ML BAG IV SCH ×3 (02:32→21:41)
[2019-04-28 04:29] LABS: Basophils % 0.2 % (0.0-0.8); Hematocrit 27.3 VOL% (35.7-47.0); Hemoglobin 8.2 GM/DL (12.0-16.0); Immature Granulocytes % 3.5 %; Immature Granulocytes Absolute 0.34 #; Lymphocytes # 1.1 10*3/uL (1.4-4.0); Lymphocytes % 11.2 % (21.3-54.2); Mean Corpuscular Volume 116.7 FL (87-102); Mean Platelet Volume 11.1 FL (9.6-12.0); Monocytes % 19.9 % (1.7-12.7); Neutrophils % 65.2 % (38.7-73.9); Platelet Count 93 T/CUMM (130-400); Red Blood Count 2.34 MC/CUMM (3.8-5.5); Red Cell Distribution Width 18.8 % (9.3-17.3); White Blood Count 9.8 T/CUMM (4-12)
[2019-04-28 04:36] LABS: Calcium 7.9 MG/DL (8.5-10.1); Osmolality,Calculated 283.3 MOS/KG (273-304)
[2019-04-28 05:06] LABS: Hypochromasia 1+; Lymphocytes 17 % (20-55); Macrocytosis Slight; Platelet Estimate Decreased; Segmented Neutrophils 64 % (50-85); Total Cells Counted 100
[2019-04-28] MEDS: ACETAMINOPHEN 325 MG TABLET PO PRN (07:17)
[2019-04-28] MEDS: ALLOPURINOL 100 MG TABLET PO SCH (08:28)
[2019-04-28] MEDS: ASPIRIN 300 MG SUPP RECTAL SCH (10:42)
[2019-04-28] MEDS: cefTRIAXone 1,000 MG in SYRINGE 1 EACH IV SCH (13:15)
[2019-04-29] MEDS: LEVALBUTEROL 1.25 MG/3 ML NEB RESP TX SCH ×3 (01:26→13:09)
[2019-04-29] MEDS: ALLOPURINOL 100 MG TABLET PO SCH (09:18)
[2019-04-29 12:08] VITALS: BP 148/84
== END 2019-04-29 13:15 | disposition home or self-care (01) | DRG 690 ==
LOC: N.ED 15:26 → SUATTDRO 19:24 → N.EDINP 19:24 → N.4E 19:50 → N.TELES 04-25 12:37 → N.4E 04-27 15:04
PROVIDERS: ADMIT Hospitalist; ATTEND Internal Medicine

== ENCOUNTER 2020-01-19 12:24 | Inpatient (IN) ==
[2020-01-19] MEDS ORDERED: SODIUM CHLORIDE 0.9% 500 ML IV STA (13:26)
[2020-01-19] MEDS ORDERED: DICYCLOMINE 20 MG/2 ML AMP IM ONE (13:26)
[2020-01-19] MEDS ORDERED: ONDANSETRON 4 MG/2 ML VIAL IV STA (13:26)
[2020-01-19] MEDS ORDERED: PANTOPRAZOLE 40 MG VIAL IV STA (13:26)
[2020-01-19] MEDS ORDERED: METOCLOPRAMIDE 10 MG/2 ML VIAL IV STA (13:30)
[2020-01-19 13:36] LABS: Basophils # 0.2 10*3/uL (0.0-0.2); Basophils % 0.2 % (0.0-0.8); Eosinophils # 0.1 10*3/uL (0.0-0.87); Eosinophils % 0.1 % (0.00-10.9); Hematocrit 38.8 VOL% (35.7-47.0); Hemoglobin 11.8 GM/DL (12.0-16.0); Immature Granulocytes % 13.7 %; Immature Granulocytes Absolute 10.91 #; Lymphocytes # 7.4 10*3/uL (1.4-4.0); Lymphocytes % 9.3 % (21.3-54.2); Mean Corpuscular HGB Conc 30.4 GM/DL (32-36); Mean Corpuscular Volume 103.2 FL (87-102); NRBC # 0.14 10*3/uL; Neutrophils % 26.7 % (38.7-73.9); Red Blood Count 3.76 MC/CUMM (3.8-5.5); Red Cell Distribution Width 20.7 % (9.3-17.3)
[2020-01-19 13:43] LABS: Platelet Count 15 T/CUMM (130-400); White Blood Count 79.4 T/CUMM (4-12)
[2020-01-19 13:52] LABS: Alanine Aminotransferase 19 U/L (13-56); Albumin 3.6 G/DL (3.4-5.0); Alkaline Phosphatase 112 U/L (45-117); Amylase 22 U/L (25-115); Aspartate Amino Transferase 31 U/L (0-37); Blood Urea Nitrogen 40 MG/DL (7-18); Calcium 9.3 MG/DL (8.5-10.1); Estimated Glom Filtration Rate 9 ML/MIN; Ferritin 523.6 ng/ml (8-252); Glucose 133 MG/DL (74-106); Osmolality,Calculated 281.1 MOS/KG (273-304); Total Protein 8.7 G/DL (6.4-8.3); Troponin I < 0.015 NG/ML (0.00-0.045)
[2020-01-19] MEDS ORDERED: SODIUM CHLORIDE 0.9% 1,000 ML IV STA (14:23)
[2020-01-19] MEDS ORDERED: metroNIDAZOLE INJ 500 MG in PREMIX 1 EACH IV STA (14:23)
[2020-01-19] MEDS ORDERED: MEROPENEM 2,000 MG in SODIUM CHLORIDE 0.9% 100 ML IV ONE (14:23)
[2020-01-19] MEDS ORDERED: DEXTROSE 10% 250 ML BAG IV PRN (15:08)
[2020-01-19] MEDS ORDERED: GLUCAGON 1 MG VIAL IM PRN (15:08)
[2020-01-19] MEDS ORDERED: MAGNESIUM SULF RIDER 4 GM in PREMIX 1 EACH IV PRN (15:12)
[2020-01-19] MEDS ORDERED: MAGNESIUM SULF RIDER 2 GM in PREMIX 1 EACH IV PRN (15:12)
[2020-01-19 15:17] LABS: Apearance,Urine CLOUDY (Clear); Bacteria,Urine Occasional /HPF (Few); Bilirubin,Urine Negative (Negative); Blood, Urine Large mg/dL (Negative); Glucose,Urine (UA) Negative (Negative); Hyaline Casts,Urine 3 /LPF (0-3); Ketones,Urine Negative (Negative); Mucus,Urine Occasional /LPF (Occasional); Nitrite,Urine Negative (Negative); Protein,Urine 30 MG/DL; RBC,Urine 559 /HPF (0-4); Squamous Epithelial Cell,Urine Occasional /HPF (0-10); Urine Color Amber (Yellow); Urine Specific Gravity 1.016 (1.001-1.035); Urine Urobilinogen < 2.0 EU/DL (0.2-1.0); WBC,Urine 43 /HPF (0-6)
[2020-01-19] MEDS: SODIUM CHLORIDE 0.9% 1,000 ML IV SCH (16:57)
[2020-01-19] MEDS: CIPROFLOXACIN INJ 400 MG in PREMIX 1 EACH IV SCH (16:57)
[2020-01-19 17:46] LABS: Band Neutrophils 5 % (0-10); Lymphocytes 18 % (20-55); Segmented Neutrophils 45 % (50-85); Total Cells Counted 100
[2020-01-19 17:47] LABS: Macrocytosis Slight; Platelet Estimate Decreased; Polychromasia Few
[2020-01-19] MEDS: metroNIDAZOLE INJ 500 MG in PREMIX 1 EACH IV SCH (20:49)
[2020-01-19] MEDS: ZALEPLON 5 MG CAPSULE PO PRN (23:33)
[2020-01-20] MEDS: metroNIDAZOLE INJ 500 MG in PREMIX 1 EACH IV SCH ×4 (03:00→20:18)
[2020-01-20] MEDS: SODIUM CHLORIDE 0.9% 1,000 ML IV SCH ×3 (06:15→22:20)
[2020-01-20 06:21] LABS: Basophils # 0.1 10*3/uL (0.0-0.2); Basophils % 0.1 % (0.0-0.8); Eosinophils % 0.1 % (0.00-10.9); Hematocrit 28.9 VOL% (35.7-47.0); Hemoglobin 8.9 GM/DL (12.0-16.0); Immature Granulocytes % 15.7 %; Immature Granulocytes Absolute 10.91 #; Lymphocytes # 4.9 10*3/uL (1.4-4.0); Lymphocytes % 7.1 % (21.3-54.2); Mean Corpuscular HGB Conc 30.8 GM/DL (32-36); Mean Corpuscular Volume 101.8 FL (87-102); Monocytes % 49.4 % (1.7-12.7); NRBC # 0.12 10*3/uL; Neutrophils % 27.6 % (38.7-73.9); Red Blood Count 2.84 MC/CUMM (3.8-5.5)
[2020-01-20 06:26] LABS: White Blood Count 69.6 T/CUMM (4-12)
[2020-01-20 06:27] LABS: Platelet Count 14 T/CUMM (130-400)
[2020-01-20 07:01] LABS: Anisocytosis 1+; Band Neutrophils 2 % (0-10); Lymphocytes 4 % (20-55); Myelocytes 1 %; Segmented Neutrophils 58 % (50-85); Total Cells Counted 100
[2020-01-20 07:02] LABS: Acanthocytes 1+; Ovalocytes 1+; Platelet Estimate Decreased
[2020-01-20 07:05] LABS: Albumin 2.3 G/DL (3.4-5.0); Bilirubin,Total 0.5 MG/DL (0.2-1.0); Calcium 7.7 MG/DL (8.5-10.1); Osmolality,Calculated 283.5 MOS/KG (273-304); Thyroid Stimulating Hormone 2.56 uIU/ml (0.358-3.74); Total Protein 6.2 G/DL (6.4-8.3)
[2020-01-20 07:33] LABS: Ferritin 494.4 ng/ml (8-252)
[2020-01-20] MEDS: PANTOPRAZOLE 40 MG TABLET PO SCH (08:14)
[2020-01-20] MEDS: CIPROFLOXACIN INJ 400 MG in PREMIX 1 EACH IV SCH (09:03)
[2020-01-20] MEDS ORDERED: SODIUM CHLORIDE 0.9% 1,000 ML IV PRN (11:29)
[2020-01-20] MEDS: ZALEPLON 5 MG CAPSULE PO PRN (22:20)
[2020-01-21] MEDS: metroNIDAZOLE INJ 500 MG in PREMIX 1 EACH IV SCH ×2 (03:20→08:45)
[2020-01-21] MEDS: CIPROFLOXACIN INJ 400 MG in PREMIX 1 EACH IV SCH (04:25)
[2020-01-21 05:50] LABS: Basophils # 0.1 10*3/uL (0.0-0.2); Basophils % 0.2 % (0.0-0.8); Eosinophils % 0.1 % (0.00-10.9); Hematocrit 30.8 VOL% (35.7-47.0); Hemoglobin 9.5 GM/DL (12.0-16.0); Immature Granulocytes % 13.7 %; Lymphocytes # 6.3 10*3/uL (1.4-4.0); Lymphocytes % 8.1 % (21.3-54.2); Mean Corpuscular HGB Conc 30.8 GM/DL (32-36); Mean Corpuscular Volume 102.3 FL (87-102); Monocytes % 49.8 % (1.7-12.7); Neutrophils % 28.1 % (38.7-73.9); Red Blood Count 3.01 MC/CUMM (3.8-5.5); Red Cell Distribution Width 21.2 % (9.3-17.3)
[2020-01-21 05:52] LABS: White Blood Count 77.7 T/CUMM (4-12)
[2020-01-21 05:53] LABS: Platelet Count 21 T/CUMM (130-400)
[2020-01-21 06:22] LABS: Albumin 2.3 G/DL (3.4-5.0); Bilirubin,Total 0.5 MG/DL (0.2-1.0); Calcium 7.7 MG/DL (8.5-10.1); Osmolality,Calculated 285.1 MOS/KG (273-304); Total Protein 6.4 G/DL (6.4-8.3)
[2020-01-21 06:23] LABS: Ferritin 695.1 ng/ml (8-252)
[2020-01-21 06:50] LABS: Band Neutrophils 13 % (0-10); Lymphocytes 9 % (20-55); Metamyelocytes 3 %; Myelocytes 6 %; Platelet Estimate Decreased; Promyelocytes 5 %; Segmented Neutrophils 35 % (50-85); Total Cells Counted 100
[2020-01-21 06:51] LABS: Anisocytosis 1+; Poikilocytosis Slight; Polychromasia Slight
[2020-01-21 06:52] LABS: Burr Cells Few; Smudge Cells 1+
[2020-01-21] MEDS: PANTOPRAZOLE 40 MG TABLET PO SCH (08:45)
[2020-01-21] MEDS: POTASSIUM CHLORIDE 20 MEQ TABLET PO PRN ×4 (14:02→20:45)
[2020-01-22 05:42] LABS: Basophils # 0.1 10*3/uL (0.0-0.2); Basophils % 0.1 % (0.0-0.8); Hematocrit 31.7 VOL% (35.7-47.0); Hemoglobin 9.9 GM/DL (12.0-16.0); Immature Granulocytes % 12.2 %; Immature Granulocytes Absolute 10.13 #; Lymphocytes # 7.6 10*3/uL (1.4-4.0); Lymphocytes % 9.1 % (21.3-54.2); Mean Corpuscular HGB Conc 31.2 GM/DL (32-36); Monocytes % 52.8 % (1.7-12.7); NRBC # 0.06 10*3/uL; Neutrophils % 25.8 % (38.7-73.9); Red Blood Count 3.14 MC/CUMM (3.8-5.5); Red Cell Distribution Width 21.7 % (9.3-17.3)
[2020-01-22 05:51] LABS: Platelet Count 17 T/CUMM (130-400); White Blood Count 83.3 T/CUMM (4-12)
[2020-01-22 06:01] LABS: Albumin 2.3 G/DL (3.4-5.0); Bilirubin,Total 0.8 MG/DL (0.2-1.0); Calcium 8.1 MG/DL (8.5-10.1); Osmolality,Calculated 272.8 MOS/KG (273-304); Total Protein 6.7 G/DL (6.4-8.3)
[2020-01-22 07:02] LABS: Ferritin 842.4 ng/ml (8-252)
[2020-01-22 07:58] LABS: Band Neutrophils 1 % (0-10); Lymphocytes 11 % (20-55); Myelocytes 1 %; Segmented Neutrophils 56 % (50-85); Total Cells Counted 100
[2020-01-22 07:59] LABS: Atypical Lymphocytes Few; Burr Cells Slight; Hypochromasia 1+; Smudge Cells Few
[2020-01-22 08:00] LABS: Acanthocytes Few; Anisocytosis 1+; Platelet Estimate Decreased
[2020-01-22] MEDS: ONDANSETRON 4 MG/2 ML VIAL IV PRN (17:08)
[2020-01-23] MEDS: ACETAMINOPHEN 325 MG TABLET PO PRN ×3 (00:46→20:47)
[2020-01-23 06:15] LABS: Ferritin 901.3 ng/ml (8-252)
[2020-01-23] MEDS: ONDANSETRON 4 MG/2 ML VIAL IV PRN (19:43)
[2020-01-23] MEDS: ZALEPLON 5 MG CAPSULE PO PRN (20:50)
[2020-01-24] MEDS ORDERED: LEVOFLOXACIN INJ 500 MG in PREMIX 1 EACH IV ONE
[2020-01-24 00:59] LABS: Basophils # 0.2 10*3/uL (0.0-0.2); Basophils % 0.2 % (0.0-0.8); Eosinophils # 0.1 10*3/uL (0.0-0.87); Eosinophils % 0.1 % (0.00-10.9); Hematocrit 31.7 VOL% (35.7-47.0); Hemoglobin 9.6 GM/DL (12.0-16.0); Immature Granulocytes % 12.3 %; Immature Granulocytes Absolute 10.83 #; Lymphocytes # 6.7 10*3/uL (1.4-4.0); Lymphocytes % 7.6 % (21.3-54.2); Mean Corpuscular HGB Conc 30.3 GM/DL (32-36); Mean Corpuscular Volume 101.9 FL (87-102); Monocytes % 47.9 % (1.7-12.7); NRBC # 0.04 10*3/uL; Neutrophils % 31.9 % (38.7-73.9); Red Blood Count 3.11 MC/CUMM (3.8-5.5); Red Cell Distribution Width 21.9 % (9.3-17.3)
[2020-01-24] MEDS: ACETAMINOPHEN 325 MG TABLET PO PRN ×2 (01:01→09:47)
[2020-01-24 01:02] LABS: Platelet Count 12 T/CUMM (130-400); White Blood Count 88.1 T/CUMM (4-12)
[2020-01-24] MEDS ORDERED: SODIUM CHLORIDE 0.9% 1,000 ML IV PRN (01:07)
[2020-01-24 01:25] LABS: Calcium 8.1 MG/DL (8.5-10.1); Osmolality,Calculated 270.1 MOS/KG (273-304)
[2020-01-24 03:59] LABS: Anisocytosis 1+; Band Neutrophils 1 % (0-10); Lymphocytes 8 % (20-55); Myelocytes 2 %; Promyelocytes 1 %; Segmented Neutrophils 65 % (50-85); Total Cells Counted 100
[2020-01-24 04:00] LABS: Acanthocytes 1+; Ovalocytes 1+; Platelet Estimate Decreased
[2020-01-24 04:06] LABS: Ferritin 911.6 ng/ml (8-252)
[2020-01-24 05:49] LABS: Basophils # 0.1 10*3/uL (0.0-0.2); Basophils % 0.2 % (0.0-0.8); Hematocrit 29.3 VOL% (35.7-47.0); Hemoglobin 8.9 GM/DL (12.0-16.0); Immature Granulocytes Absolute 10.93 #; Lymphocytes # 5.2 10*3/uL (1.4-4.0); Lymphocytes % 6.6 % (21.3-54.2); Mean Corpuscular HGB Conc 30.4 GM/DL (32-36); Mean Corpuscular Volume 102.4 FL (87-102); Monocytes % 44.1 % (1.7-12.7); NRBC # 0.02 10*3/uL; Neutrophils % 35.1 % (38.7-73.9); Red Blood Count 2.86 MC/CUMM (3.8-5.5); Red Cell Distribution Width 21.8 % (9.3-17.3)
[2020-01-24 06:02] LABS: Platelet Count 25 T/CUMM (130-400); White Blood Count 78.2 T/CUMM (4-12)
[2020-01-24 06:12] LABS: Band Neutrophils 2 % (0-10); Lymphocytes 11 % (20-55); Segmented Neutrophils 52 % (50-85); Total Cells Counted 100
[2020-01-24 06:13] LABS: Atypical Lymphocytes Few; Burr Cells Slight; Hypochromasia 1+; Ovalocytes Slight; Platelet Estimate Decreased; Smudge Cells Few
[2020-01-24] MEDS: POTASSIUM CHLORIDE 20 MEQ TABLET PO PRN ×3 (09:46→14:33)
[2020-01-24] MEDS: HYDROXYUREA 500 MG CAPSULE PO SCH (09:47)
[2020-01-24] MEDS: amLODIPine 2.5 MG TABLET PO SCH (11:17)
[2020-01-24] MEDS: DICLOFENAC 1% GEL 100 GM TUBE TOP SCH ×2 (14:33→20:40)
[2020-01-24] MEDS: ZALEPLON 5 MG CAPSULE PO PRN (22:01)
[2020-01-25] MEDS ORDERED: LEVOFLOXACIN INJ 250 MG in PREMIX 1 EACH IV ONE
[2020-01-25 06:44] LABS: Basophils # 0.2 10*3/uL (0.0-0.2); Basophils % 0.3 % (0.0-0.8); Hematocrit 29.7 VOL% (35.7-47.0); Hemoglobin 9.1 GM/DL (12.0-16.0); Immature Granulocytes % 14.4 %; Immature Granulocytes Absolute 8.22 #; Lymphocytes # 17.7 10*3/uL (1.4-4.0); Lymphocytes % 30.9 % (21.3-54.2); Mean Corpuscular HGB Conc 30.6 GM/DL (32-36); Mean Corpuscular Volume 101.7 FL (87-102); Monocytes % 16.3 % (1.7-12.7); Neutrophils % 38.1 % (38.7-73.9); Red Blood Count 2.92 MC/CUMM (3.8-5.5); Red Cell Distribution Width 22.1 % (9.3-17.3)
[2020-01-25 07:03] LABS: Calcium 7.9 MG/DL (8.5-10.1); Osmolality,Calculated 268.1 MOS/KG (273-304)
[2020-01-25 07:12] LABS: Platelet Count 13 T/CUMM (130-400)
[2020-01-25 07:13] LABS: White Blood Count 57.3 T/CUMM (4-12)
[2020-01-25 07:19] LABS: Atypical Lymphocytes Few; Band Neutrophils 1 % (0-10); Hypochromasia 1+; Lymphocytes 9 % (20-55); Microcytosis 1+; Myelocytes 1 %; Platelet Estimate Decreased; Segmented Neutrophils 68 % (50-85); Total Cells Counted 100
[2020-01-25] MEDS: HYDROXYUREA 500 MG CAPSULE PO SCH (10:26)
[2020-01-25] MEDS: DICLOFENAC 1% GEL 100 GM TUBE TOP SCH ×3 (10:28→21:02)
[2020-01-25] MEDS: amLODIPine 2.5 MG TABLET PO SCH (11:49)
[2020-01-25] MEDS: ZALEPLON 5 MG CAPSULE PO PRN (22:02)
[2020-01-26 08:02] LABS: Basophils # 0.2 10*3/uL (0.0-0.2); Basophils % 0.7 % (0.0-0.8); Hematocrit 30.4 VOL% (35.7-47.0); Hemoglobin 9.4 GM/DL (12.0-16.0); Immature Granulocytes % 14.7 %; Lymphocytes # 6.7 10*3/uL (1.4-4.0); Lymphocytes % 21.6 % (21.3-54.2); Mean Corpuscular HGB Conc 30.9 GM/DL (32-36); Mean Corpuscular Volume 100.7 FL (87-102); Monocytes % 19.7 % (1.7-12.7); Neutrophils % 43.3 % (38.7-73.9); Red Blood Count 3.02 MC/CUMM (3.8-5.5); Red Cell Distribution Width 22.5 % (9.3-17.3); White Blood Count 31.2 T/CUMM (4-12)
[2020-01-26 08:05] LABS: Platelet Count 57 T/CUMM (130-400)
[2020-01-26 08:34] LABS: Albumin 2.3 G/DL (3.4-5.0); Atypical Lymphocytes Few; Band Neutrophils 1 % (0-10); Bilirubin,Total 0.5 MG/DL (0.2-1.0); Hypochromasia 1+; Lymphocytes 11 % (20-55); Microcytosis 1+; Osmolality,Calculated 269.2 MOS/KG (273-304); Ovalocytes Slight; Platelet Estimate Decreased; Segmented Neutrophils 70 % (50-85); Total Cells Counted 100; Total Protein 7.3 G/DL (6.4-8.3)
[2020-01-26] MEDS: HYDROXYUREA 500 MG CAPSULE PO SCH (09:15)
[2020-01-26] MEDS: amLODIPine 2.5 MG TABLET PO SCH (09:15)
[2020-01-26] MEDS: DICLOFENAC 1% GEL 100 GM TUBE TOP SCH (09:17)
[2020-01-26 14:37] VITALS: BP 100/63
== END 2020-01-26 13:05 | disposition home or self-care (01) | DRG 392 ==
LOC: N.ED 12:24 → N.EDINP 14:53 → SUATTDRO 14:53 → N.2E 16:25 → N.4E 01-23 13:30
PROVIDERS: ADMIT Internal Medicine; ATTEND Internal Medicine

== ENCOUNTER 2020-02-14 10:17 | Inpatient (IN) ==
[2020-02-14] MEDS ORDERED: SODIUM CHLORIDE 0.9% 1,000 ML IV STA (10:34)
[2020-02-14] MEDS ORDERED: ONDANSETRON 4 MG/2 ML VIAL IV STA (10:34)
[2020-02-14] MEDS ORDERED: ONDANSETRON 4 MG/2 ML VIAL ONE (10:55)
[2020-02-14 11:43] LABS: Basophils # 0.1 10*3/uL (0.0-0.2); Basophils % 0.2 % (0.0-0.8); Hematocrit 18.4 VOL% (35.7-47.0); Immature Granulocytes Absolute 1.03 #; Lymphocytes # 6.7 10*3/uL (1.4-4.0); Lymphocytes % 19.6 % (21.3-54.2); Mean Corpuscular HGB Conc 29.9 GM/DL (32-36); Mean Corpuscular Volume 98.4 FL (87-102); Monocytes % 74.9 % (1.7-12.7); NRBC # 0.91 10*3/uL; Neutrophils % 2.3 % (38.7-73.9); Red Blood Count 1.87 MC/CUMM (3.8-5.5); Red Cell Distribution Width 20.8 % (9.3-17.3); White Blood Count 34.3 T/CUMM (4-12)
[2020-02-14 11:46] LABS: Hemoglobin 5.5 GM/DL (12.0-16.0)
[2020-02-14 11:47] LABS: Platelet Count 21 T/CUMM (130-400)
[2020-02-14 12:05] LABS: Albumin 3.2 G/DL (3.4-5.0); Bilirubin,Total 0.5 MG/DL (0.2-1.0); Calcium 8.8 MG/DL (8.5-10.1); Total Protein 7.7 G/DL (6.4-8.3)
[2020-02-14 12:28] LABS: Atypical Lymphocytes Few; Giant Platelets Few; Hypochromasia 2+; Lymphocytes 21 % (20-55); Ovalocytes Few; Platelet Estimate Decreased; Poikilocytosis 1+; Sickle Cells Slight; Smudge Cells Moderate; Target Cells Slight; Total Cells Counted 100
[2020-02-14 12:29] LABS: Segmented Neutrophils 3 % (50-85)
[2020-02-14] MEDS ORDERED: GLUCAGON 1 MG VIAL IM PRN (14:38)
[2020-02-14] MEDS ORDERED: DEXTROSE 50% 25 GM/50 ML VIAL IV PRN (14:38)
[2020-02-14] MEDS ORDERED: SODIUM CHLORIDE 0.9% 1,000 ML IV PRN (14:42)
[2020-02-14 15:35] LABS: % Iron Saturation 31.3 % (18-50)
[2020-02-14] MEDS: POTASSIUM CHLORIDE 8 MEQ CAPSULE PO SCH ×2 (16:19→21:37)
[2020-02-14] MEDS: ACETAMINOPHEN 325 MG TABLET PO PRN (21:36)
[2020-02-14] MEDS: SODIUM BICARBONATE 650 MG TABLET PO SCH (21:37)
[2020-02-14] MEDS: ONDANSETRON 4 MG/2 ML VIAL IV PRN (21:37)
[2020-02-14] MEDS: CALCIUM (CITRATE)/VITAMIN D 200 MG-125 UNIT TABLET PO SCH (21:46)
[2020-02-15 01:47] LABS: Hematocrit 26.3 VOL% (35.7-47.0); Hemoglobin 8.4 GM/DL (12.0-16.0)
[2020-02-15 05:23] LABS: Basophils % 0.1 % (0.0-0.8); Hematocrit 25.9 VOL% (35.7-47.0); Hemoglobin 8.5 GM/DL (12.0-16.0); Immature Granulocytes % 4.8 %; Immature Granulocytes Absolute 1.45 #; Lymphocytes # 6.5 10*3/uL (1.4-4.0); Lymphocytes % 21.4 % (21.3-54.2); Mean Corpuscular HGB Conc 32.8 GM/DL (32-36); Mean Corpuscular Volume 94.5 FL (87-102); NRBC # 0.73 10*3/uL; Neutrophils % 2.7 % (38.7-73.9); Red Blood Count 2.74 MC/CUMM (3.8-5.5); Red Cell Distribution Width 17.2 % (9.3-17.3); White Blood Count 30.3 T/CUMM (4-12)
[2020-02-15 05:38] LABS: Platelet Count 17 T/CUMM (130-400)
[2020-02-15 05:49] LABS: Calcium 8.3 MG/DL (8.5-10.1)
[2020-02-15 06:54] LABS: Atypical Lymphocytes Few; Lymphocytes 42 % (20-55); Nucleated Red Blood Cells 4 (0-5); Promyelocytes 1 %; Segmented Neutrophils 12 % (50-85); Total Cells Counted 100
[2020-02-15 06:55] LABS: Anisocytosis 1+; Hypochromasia 1+; Microcytosis 1+; Ovalocytes Slight
[2020-02-15 06:56] LABS: Platelet Estimate Decreased; Smudge Cells Few
[2020-02-15] MEDS ORDERED: MAGNESIUM SULF RIDER 4 GM in PREMIX 1 EACH IV STA (07:50)
[2020-02-15] MEDS: HYDROXYUREA 500 MG CAPSULE PO SCH (08:10)
[2020-02-15] MEDS: SODIUM BICARBONATE 650 MG TABLET PO SCH ×2 (08:11→21:44)
[2020-02-15] MEDS: CALCIUM (CITRATE)/VITAMIN D 200 MG-125 UNIT TABLET PO SCH ×2 (08:11→21:44)
[2020-02-15] MEDS: POTASSIUM CHLORIDE 8 MEQ CAPSULE PO SCH ×3 (08:11→21:44)
[2020-02-15] MEDS: amLODIPine 5 MG TABLET PO SCH (08:11)
[2020-02-15] MEDS: ACETAMINOPHEN 325 MG TABLET PO PRN (15:32)
[2020-02-16 05:40] LABS: Basophils # 0.1 10*3/uL (0.0-0.2); Basophils % 0.2 % (0.0-0.8); Hemoglobin 7.3 GM/DL (12.0-16.0); Lymphocytes # 8.2 10*3/uL (1.4-4.0); Lymphocytes % 17.3 % (21.3-54.2); Mean Corpuscular HGB Conc 31.7 GM/DL (32-36); Mean Corpuscular Volume 93.9 FL (87-102); Monocytes % 64.4 % (1.7-12.7); NRBC # 0.72 10*3/uL; Neutrophils % 18.1 % (38.7-73.9); Red Blood Count 2.45 MC/CUMM (3.8-5.5)
[2020-02-16 05:49] LABS: Platelet Count 29 T/CUMM (130-400); White Blood Count 47.5 T/CUMM (4-12)
[2020-02-16 05:59] LABS: Calcium 8.8 MG/DL (8.5-10.1); Osmolality,Calculated 267.2 MOS/KG (273-304)
[2020-02-16 07:42] LABS: Total Cells Counted 100
[2020-02-16 07:52] LABS: Anisocytosis 1+; Band Neutrophils 1 % (0-10); Lymphocytes 22 % (20-55); Macrocytosis 1+; Nucleated Red Blood Cells 8 (0-5); Platelet Estimate Decreased; Segmented Neutrophils 10 % (50-85)
[2020-02-16 07:53] LABS: Atypical Lymphocytes Moderate; Ovalocytes Few
[2020-02-16] MEDS: SODIUM BICARBONATE 650 MG TABLET PO SCH ×2 (08:53→21:14)
[2020-02-16] MEDS: POTASSIUM CHLORIDE 8 MEQ CAPSULE PO SCH ×3 (08:53→21:15)
[2020-02-16] MEDS: CALCIUM (CITRATE)/VITAMIN D 200 MG-125 UNIT TABLET PO SCH ×2 (08:53→21:15)
[2020-02-16] MEDS: HYDROXYUREA 500 MG CAPSULE PO SCH (08:54)
[2020-02-16] MEDS: amLODIPine 5 MG TABLET PO SCH (08:54)
[2020-02-16] MEDS ORDERED: PIPERACILLIN/TAZOBACTAM 3,375 MG in SODIUM CHLORIDE 0.9% 100 ML IV SCH (09:00)
[2020-02-16] MEDS ORDERED: VANCOMYCIN INJ 1,000 MG in SODIUM CHLORIDE 0.9% 250 ML IV ONE (09:00)
[2020-02-16] MEDS: DEXAMETHASONE 0.5 MG TABLET PO SCH (10:10)
[2020-02-16] MEDS: PIPERACILLIN/TAZOBACTAM 3,375 MG in SODIUM CHLORIDE 0.9% 100 ML IV SCH ×2 (11:16→18:18)
[2020-02-16] MEDS: ONDANSETRON 4 MG/2 ML VIAL IV PRN (18:46)
[2020-02-17] MEDS: PIPERACILLIN/TAZOBACTAM 3,375 MG in SODIUM CHLORIDE 0.9% 100 ML IV SCH ×2 (02:12→15:51)
[2020-02-17 05:25] LABS: Basophils # 0.3 10*3/uL (0.0-0.2); Basophils % 0.5 % (0.0-0.8); Hematocrit 20.3 VOL% (35.7-47.0); Hemoglobin 6.5 GM/DL (12.0-16.0); Lymphocytes # 7.2 10*3/uL (1.4-4.0); Lymphocytes % 12.9 % (21.3-54.2); Mean Corpuscular Volume 93.5 FL (87-102); Monocytes % 61.1 % (1.7-12.7); NRBC # 0.67 10*3/uL; Neutrophils % 25.5 % (38.7-73.9); Red Blood Count 2.17 MC/CUMM (3.8-5.5); Red Cell Distribution Width 18.4 % (9.3-17.3)
[2020-02-17 05:40] LABS: Platelet Count 33 T/CUMM (130-400); White Blood Count 55.5 T/CUMM (4-12)
[2020-02-17 05:46] LABS: Calcium 9.2 MG/DL (8.5-10.1); Osmolality,Calculated 272.8 MOS/KG (273-304)
[2020-02-17 06:16] LABS: Apearance,Urine CLOUDY (Clear); Bilirubin,Urine Negative (Negative); Blood, Urine Large mg/dL (Negative); Glucose,Urine (UA) Negative (Negative); Hyaline Casts,Urine 4 /LPF (0-3); Ketones,Urine 5 mg/dL (Negative); Mucus,Urine Occasional /LPF (Occasional); Nitrite,Urine Negative (Negative); Protein,Urine Negative; RBC,Urine 94 /HPF (0-4); Squamous Epithelial Cell,Urine Occasional /HPF (0-10); Transitional Epi Cells,Urine Occasional /HPF (<1); Urine Color Yellow (Yellow); Urine Specific Gravity 1.018 (1.001-1.035); Urine Urobilinogen < 2.0 EU/DL (0.2-1.0); WBC,Urine 2 /HPF (0-6)
[2020-02-17] MEDS ORDERED: SODIUM CHLORIDE 0.9% 1,000 ML IV PRN (06:51)
[2020-02-17 07:08] LABS: Anisocytosis 2+; Band Neutrophils 2 % (0-10); Lymphocytes 17 % (20-55); Metamyelocytes 1 %; Nucleated Red Blood Cells 4 (0-5); Platelet Estimate Decreased; Segmented Neutrophils 16 % (50-85); Smudge Cells 2+; Total Cells Counted 100
[2020-02-17 07:09] LABS: Giant Platelets Few; Poikilocytosis 1+
[2020-02-17 07:10] LABS: Macrocytosis 1+
[2020-02-17 07:11] LABS: Ovalocytes Few
[2020-02-17 07:12] LABS: Atypical Lymphocytes Few
[2020-02-17] MEDS: ONDANSETRON 4 MG/2 ML VIAL IV PRN (08:25)
[2020-02-17] MEDS: POTASSIUM CHLORIDE 8 MEQ CAPSULE PO SCH ×3 (08:28→20:58)
[2020-02-17] MEDS: amLODIPine 5 MG TABLET PO SCH (08:28)
[2020-02-17] MEDS: SODIUM BICARBONATE 650 MG TABLET PO SCH ×2 (08:28→20:58)
[2020-02-17] MEDS: CALCIUM (CITRATE)/VITAMIN D 200 MG-125 UNIT TABLET PO SCH ×2 (08:28→20:58)
[2020-02-17] MEDS: HYDROXYUREA 500 MG CAPSULE PO SCH (08:28)
[2020-02-17] MEDS ORDERED: VANCOMYCIN INJ 750 MG in SODIUM CHLORIDE 0.9% 250 ML IV PRN (09:00)
[2020-02-17] MEDS ORDERED: VANCOMYCIN INJ 750 MG in SODIUM CHLORIDE 0.9% 250 ML IV ONE (11:00)
[2020-02-17 15:31] LABS: Hematocrit 28.9 VOL% (35.7-47.0)
[2020-02-17 15:33] LABS: Hemoglobin 9.6 GM/DL (12.0-16.0)
[2020-02-18] MEDS: PIPERACILLIN/TAZOBACTAM 3,375 MG in SODIUM CHLORIDE 0.9% 100 ML IV SCH ×3 (01:26→17:31)
[2020-02-18 06:06] LABS: Calcium 9.6 MG/DL (8.5-10.1); Osmolality,Calculated 273.8 MOS/KG (273-304)
[2020-02-18] MEDS: SODIUM CHLORIDE 0.9% 500 ML IV SCH ×2 (08:29→22:30)
[2020-02-18] MEDS: SODIUM BICARBONATE 650 MG TABLET PO SCH ×2 (08:37→20:49)
[2020-02-18] MEDS: DEXAMETHASONE 0.5 MG TABLET PO SCH (08:37)
[2020-02-18] MEDS: amLODIPine 5 MG TABLET PO SCH (08:37)
[2020-02-18] MEDS: HYDROXYUREA 500 MG CAPSULE PO SCH (08:37)
[2020-02-18] MEDS: POTASSIUM CHLORIDE 8 MEQ CAPSULE PO SCH ×3 (08:37→20:50)
[2020-02-18] MEDS: CALCIUM (CITRATE)/VITAMIN D 200 MG-125 UNIT TABLET PO SCH ×2 (08:38→20:50)
[2020-02-18 10:18] LABS: Basophils # 0.1 10*3/uL (0.0-0.2); Basophils % 0.2 % (0.0-0.8); Hematocrit 31.5 VOL% (35.7-47.0); Hemoglobin 10.2 GM/DL (12.0-16.0); Immature Granulocytes % 12.8 %; Immature Granulocytes Absolute 8.12 #; Lymphocytes # 15.4 10*3/uL (1.4-4.0); Lymphocytes % 24.2 % (21.3-54.2); Mean Corpuscular HGB Conc 32.4 GM/DL (32-36); Mean Corpuscular Volume 92.4 FL (87-102); Monocytes % 55.6 % (1.7-12.7); NRBC # 0.69 10*3/uL; Neutrophils % 7.2 % (38.7-73.9); Platelet Count 43 T/CUMM (130-400); Red Blood Count 3.41 MC/CUMM (3.8-5.5); Red Cell Distribution Width 17.7 % (9.3-17.3)
[2020-02-18 10:20] LABS: White Blood Count 63.6 T/CUMM (4-12)
[2020-02-18 11:02] LABS: Band Neutrophils 6 % (0-10); Lymphocytes 28 % (20-55); Myelocytes 4 %; Segmented Neutrophils 18 % (50-85); Total Cells Counted 100
[2020-02-18 11:03] LABS: Anisocytosis 1+; Atypical Lymphocytes 1+; Basophilic Stippling Slight; Nucleated Red Blood Cells 2 (0-5); Platelet Estimate Decreased; Smudge Cells Few
[2020-02-18 11:05] LABS: Macrocytosis Slight; Poikilocytosis Slight
[2020-02-18] MEDS ORDERED: VANCOMYCIN INJ 750 MG in SODIUM CHLORIDE 0.9% 250 ML IV ONE (16:00)
[2020-02-19] MEDS: PIPERACILLIN/TAZOBACTAM 3,375 MG in SODIUM CHLORIDE 0.9% 100 ML IV SCH ×4 (00:14→23:51)
[2020-02-19] MEDS: ACETAMINOPHEN 325 MG TABLET PO PRN (05:08)
[2020-02-19 06:11] LABS: Basophils # 0.2 10*3/uL (0.0-0.2); Basophils % 0.2 % (0.0-0.8); Hematocrit 30.8 VOL% (35.7-47.0); Hemoglobin 9.9 GM/DL (12.0-16.0); Immature Granulocytes % 20.9 %; Immature Granulocytes Absolute 13.47 #; Lymphocytes # 9.7 10*3/uL (1.4-4.0); Mean Corpuscular HGB Conc 32.1 GM/DL (32-36); Mean Corpuscular Volume 92.8 FL (87-102); Monocytes % 53.4 % (1.7-12.7); NRBC # 0.74 10*3/uL; Neutrophils % 10.5 % (38.7-73.9); Platelet Count 44 T/CUMM (130-400); Red Blood Count 3.32 MC/CUMM (3.8-5.5); Red Cell Distribution Width 18.3 % (9.3-17.3)
[2020-02-19 06:15] LABS: White Blood Count 64.3 T/CUMM (4-12)
[2020-02-19 06:43] LABS: Atypical Lymphocytes 1+; Hypochromasia 1+; Lymphocytes 50 % (20-55); Microcytosis 1+; Nucleated Red Blood Cells 3 (0-5); Platelet Estimate Decreased; Segmented Neutrophils 20 % (50-85); Smudge Cells Moderate; Total Cells Counted 100
[2020-02-19 06:44] LABS: Calcium 10.2 MG/DL (8.5-10.1); Osmolality,Calculated 282.3 MOS/KG (273-304)
[2020-02-19] MEDS ORDERED: ETOMIDATE 20 MG/10 ML VIAL IV ONE (09:00)
[2020-02-19] MEDS ORDERED: LIDOCAINE 2% 5 ML VIAL ONE (09:00)
[2020-02-19] MEDS: POTASSIUM CHLORIDE 8 MEQ CAPSULE PO SCH ×3 (13:16→20:22)
[2020-02-19] MEDS: CALCIUM (CITRATE)/VITAMIN D 200 MG-125 UNIT TABLET PO SCH ×2 (13:16→20:22)
[2020-02-19] MEDS: SODIUM BICARBONATE 650 MG TABLET PO SCH ×2 (13:17→20:22)
[2020-02-19] MEDS: HYDROXYUREA 500 MG CAPSULE PO SCH (15:30)
[2020-02-19] MEDS: amLODIPine 5 MG TABLET PO SCH (15:31)
[2020-02-19] MEDS: SODIUM CHLORIDE 0.9% 500 ML IV SCH ×2 (19:38→19:39)
[2020-02-20 07:44] LABS: Basophils # 0.2 10*3/uL (0.0-0.2); Basophils % 0.3 % (0.0-0.8); Hematocrit 31.7 VOL% (35.7-47.0); Hemoglobin 9.8 GM/DL (12.0-16.0); Immature Granulocytes % 19.2 %; Immature Granulocytes Absolute 14.51 #; Lymphocytes # 13.2 10*3/uL (1.4-4.0); Lymphocytes % 17.5 % (21.3-54.2); Mean Corpuscular HGB Conc 30.9 GM/DL (32-36); Mean Corpuscular Volume 95.2 FL (87-102); Monocytes % 53.7 % (1.7-12.7); NRBC # 0.79 10*3/uL; Neutrophils % 9.3 % (38.7-73.9); Platelet Count 55 T/CUMM (130-400); Red Blood Count 3.33 MC/CUMM (3.8-5.5); Red Cell Distribution Width 19.6 % (9.3-17.3)
[2020-02-20 07:52] LABS: White Blood Count 75.6 T/CUMM (4-12)
[2020-02-20 08:04] LABS: Atypical Lymphocytes Few; Lymphocytes 45 % (20-55); Platelet Estimate Decreased; Segmented Neutrophils 19 % (50-85); Smudge Cells Moderate; Total Cells Counted 100
[2020-02-20 08:05] LABS: Hypochromasia Slight; Microcytosis Slight
[2020-02-20] MEDS: SODIUM BICARBONATE 650 MG TABLET PO SCH (08:25)
[2020-02-20] MEDS: DEXAMETHASONE 0.5 MG TABLET PO SCH (08:25)
[2020-02-20] MEDS: POTASSIUM CHLORIDE 8 MEQ CAPSULE PO SCH (08:26)
[2020-02-20] MEDS: HYDROXYUREA 500 MG CAPSULE PO SCH (08:26)
[2020-02-20] MEDS: CALCIUM (CITRATE)/VITAMIN D 200 MG-125 UNIT TABLET PO SCH (08:26)
[2020-02-20] MEDS: amLODIPine 5 MG TABLET PO SCH (08:30)
[2020-02-20] MEDS: PIPERACILLIN/TAZOBACTAM 3,375 MG in SODIUM CHLORIDE 0.9% 100 ML IV SCH ×2 (09:34→18:45)
[2020-02-20] MEDS: SODIUM CHLORIDE 0.9% 500 ML IV SCH ×2 (10:45→13:42)
[2020-02-21] MEDS: PIPERACILLIN/TAZOBACTAM 3,375 MG in SODIUM CHLORIDE 0.9% 100 ML IV SCH ×2 (00:48→09:24)
[2020-02-21] MEDS ORDERED: SCOPOLAMINE 1.5 MG PATCH TRANSDERM ONE (08:11)
[2020-02-21] MEDS ORDERED: SODIUM CHLORIDE 0.9% 1,000 ML IV SCH (08:30)
[2020-02-21] MEDS ORDERED: AZITHROMYCIN INJ 500 MG in SODIUM CHLORIDE 0.9% 250 ML IV SCH (08:30)
[2020-02-21 08:47] LABS: Basophils # 0.3 10*3/uL (0.0-0.2); Basophils % 0.4 % (0.0-0.8); Hematocrit 28.3 VOL% (35.7-47.0); Hemoglobin 9.1 GM/DL (12.0-16.0); Immature Granulocytes % 17.7 %; Immature Granulocytes Absolute 12.04 #; Lymphocytes # 10.9 10*3/uL (1.4-4.0); Mean Corpuscular HGB Conc 32.2 GM/DL (32-36); Mean Corpuscular Volume 92.5 FL (87-102); Monocytes % 46.1 % (1.7-12.7); Neutrophils % 19.8 % (38.7-73.9); Platelet Count 56 T/CUMM (130-400); Red Blood Count 3.06 MC/CUMM (3.8-5.5); Red Cell Distribution Width 20.1 % (9.3-17.3)
[2020-02-21 08:52] LABS: White Blood Count 68.1 T/CUMM (4-12)
[2020-02-21] MEDS ORDERED: cefTRIAXone 1,000 MG in SYRINGE 1 EACH IV SCH (09:00)
[2020-02-21 09:09] LABS: Atypical Lymphocytes Few; Hypochromasia 1+; Lymphocytes 52 % (20-55); Nucleated Red Blood Cells 4 (0-5); Platelet Estimate Decreased; Segmented Neutrophils 16 % (50-85); Smudge Cells Few; Total Cells Counted 100
[2020-02-21 09:10] LABS: Microcytosis Slight
[2020-02-21 09:13] LABS: Bilirubin,Total 0.5 MG/DL (0.2-1.0); Calcium 10.7 MG/DL (8.5-10.1); Osmolality,Calculated 307.3 MOS/KG (273-304); Total Protein 6.6 G/DL (6.4-8.3)
[2020-02-21] MEDS ORDERED: ALBUTEROL/IPRATROPIUM 3 ML NEB RESP TX SCH (13:00)
[2020-02-21 16:33] VITALS: BP 108/50
== END 2020-02-21 12:35 | disposition hospice, inpatient (51) | DRG 840 ==
LOC: N.ED 10:17 → SUATTDRO 12:07 → N.EDINP 12:07 → N.TELES 12:53 → N.4E 02-19 16:39
PROVIDERS: ADMIT Internal Medicine; ATTEND Hospitalist

== ENCOUNTER 2020-02-21 12:34 | Inpatient (IN) ==
[2020-02-21] MEDS ORDERED: LORazepam 2 MG/1 ML VIAL IV PRN (12:44)
[2020-02-21] MEDS: MORPHINE 10 MG/1 ML VIAL IV PRN (17:15)
[2020-02-22 09:08] VITALS: BP 55/34
[2020-02-22] MEDS ORDERED: ACETAMINOPHEN 650 MG SUPP RECTAL PRN (09:46)
[2020-02-22] MEDS: MORPHINE 10 MG/1 ML VIAL IV PRN (10:12)
== END 2020-02-22 12:27 | disposition expired | DRG 951 ==
LOC: N.4E 12:34
PROVIDERS: ADMIT Internal Medicine; ATTEND Internal Medicine